=== PATIENT | female | born 1945 | race Caucasian/White ===

== ENCOUNTER → 2016-06-01 | Outpatient (CLI) | payer OTHER ==
[~2016-06-01] MED LIST: ATIVAN; DIAZPOW; ZOLPIDEM
[2016-06-01 09:20] LABS: Basophils # (auto) 0.1 uL; Eosinophils # (auto) 0.2 uL; Eosinophils % (auto) 3.3 % (0.0-7.0); Hematocrit 43.4 % (36.0-46.0); Hemoglobin 13.6 g/dL (12.2-16.2); Lymphocytes # (auto) 1.8 uL; Lymphocytes % (auto) 30.1 % (10.0-50.0); Mean Corpuscular Hemoglobin 28.6 pg (28.0-32.0); Mean Corpuscular Hgb Conc. 31.3 g/dL (32.0-36.0); Mean Corpuscular Volume 91.5 fL (80.0-100.0); Mean Platelet Volume 7.8 fL (7.4-10.4); Monocytes # (auto) 0.5 uL; Monocytes % (auto) 8.2 % (0.0-12.0); Neutrophils # (auto) 3.4 uL; Neutrophils % (auto) 57.4 % (37.0-80.0); Platelet Count (auto) 273 10^3/uL (140-450); Red Cell Distribution Width 14.9 % (11.6-16.0)
[2016-06-01 09:27] LABS: Urine Bilirubin Negative (Negative); Urine Blood Negative /uL (Negative); Urine Color Yellow (Yellow); Urine Glucose Normal (Normal); Urine Ketone Negative (Negative); Urine Nitrite Negative (Negative); Urine RBC <1 /hpf (0 - 4); Urine Squamous Epithelial Cell FEW /hpf (<5); Urine Urobilinogen Normal (Negative)
[2016-06-01 10:36] LABS: Albumin 3.7 g/dL (3.4-5.0); BUN/Creatinine Ratio 19.2; Bilirubin, Total 0.5 mg/dL (0.2-1.0); Calcium 8.9 mg/dL (8.5-10.1); Potassium 4.2 mmol/L (3.5-5.1); Total Protein 7.6 g/dL (6.4-8.2)
== END | disposition home or self-care (01) ==
LOC: LAB 08:31
PROVIDERS: ATTEND Internal Medicine
DX: I10 Essential (primary) hypertension (principal); Z00.00 Encounter for general adult medical examination without abnormal findings; E55.9 Vitamin D deficiency, unspecified
CPT/HCPCS: 36415; 80053; 80061; 81001; 82306; 83036; 84443; 85025

== ENCOUNTER → 2016-09-24 | Outpatient (CLI) | payer OTHER, MEDICARE ==
[2016-09-24 08:58] LABS: Albumin 3.7 g/dL (3.4-5.0); Bilirubin, Direct 0.1 mg/dL (0-0.2); Bilirubin, Total 0.5 mg/dL (0.2-1.0); Total Protein 7.4 g/dL (6.4-8.2)
== END | disposition home or self-care (01) ==
LOC: LAB 08:09
PROVIDERS: ATTEND Internal Medicine
DX: I10 Essential (primary) hypertension (principal); E78.5 Hyperlipidemia, unspecified; K76.89 Other specified diseases of liver
CPT/HCPCS: 36415; 80076; 86704; 86706; 86708; 86803; 87340

== ENCOUNTER 2017-08-14 02:52 | Emergency (ER) | payer MEDICARE, OTHER ==
[~2017-08-14] VITALS: Ht 152.4 cm; Wt 52.6 kg
[2017-08-14 03:44] LABS: Basophils # (auto) 0.1 uL; Basophils % (auto) 0.9 % (0.0-2.0); Eosinophils # (auto) 0.2 uL; Eosinophils % (auto) 3.8 % (0.0-7.0); Hematocrit 42.3 % (36.0-46.0); Lymphocytes # (auto) 2.2 uL; Lymphocytes % (auto) 35.7 % (10.0-50.0); Mean Corpuscular Hemoglobin 30.8 pg (28.0-32.0); Mean Corpuscular Hgb Conc. 33.2 g/dL (32.0-36.0); Mean Corpuscular Volume 92.8 fL (80.0-100.0); Monocytes # (auto) 0.5 uL; Monocytes % (auto) 8.1 % (0.0-12.0); Neutrophils # (auto) 3.2 uL; Neutrophils % (auto) 51.5 % (37.0-80.0); Platelet Count (auto) 225 10^3/uL (140-450); Red Blood Cells 4.56 10^6/uL (4.0-5.20); Red Cell Distribution Width 13.7 % (11.8-14.3); White Blood Cell 6.2 10^3/uL (4.4-10.8)
[2017-08-14 04:08] LABS: Albumin 3.7 g/dL (3.4-5.0); BUN/Creatinine Ratio 25.6; Bilirubin, Total 0.4 mg/dL (0.2-1.0); Calcium 8.6 mg/dL (8.5-10.1); Magnesium 2.2 mg/dL (1.6-2.6); Potassium 3.4 mmol/L (3.5-5.1); Total Protein 7.8 g/dL (6.4-8.2)
[2017-08-14] MEDS ORDERED: POTASSIUM CHL 10% (20 MEQ/15ML) 15ml ORAL SOLN PO ONE (09:00)
[2017-08-14] MEDS ORDERED: ASPirin 325 MG TAB ONE (09:42)
[2017-08-14] MEDS ORDERED: ASPirin 325 MG TAB PO ONE (09:45)
[2017-08-14 11:39] VITALS: BP 114/77
[2017-08-14] MEDS ORDERED: ENOXAPARIN SOD 60 MG/0.6 ML SYRINGE SC ONE (11:45)
== END 2017-08-14 12:13 | disposition home or self-care (01) ==
LOC: ER 02:54
DX: R07.9 Chest pain, unspecified (principal); I10 Essential (primary) hypertension; I25.10 Atherosclerotic heart disease of native coronary artery without angina pectoris; E87.6 Hypokalemia; I25.2 Old myocardial infarction; R06.02 Shortness of breath; E78.00 Pure hypercholesterolemia, unspecified; Z79.899 Other long term (current) drug therapy
CPT/HCPCS: 36415; 71045; 80053; 83735; 83880; 84484; 85025; 93005; 96372; 99285; J1650

== ENCOUNTER 2020-11-13 02:34 | Inpatient (IN) | payer OTHER ==
[~2020-11-13] VITALS: Ht 152.4 cm; Wt 54.3 kg
[2020-11-13] MEDS ORDERED: NITROGLYCERIN 0.2MG/HR TOPICAL PATCH TD ONE (04:00)
[2020-11-13] MEDS ORDERED: ALUM & MAG HYDROX-SIMETH LIQ(MAALOX) 30 ML PO ONE (04:00)
[2020-11-13] MEDS ORDERED: ASPirin 81 mg TAB PO ONE (04:00)
[2020-11-13 04:24] LABS: Albumin 3.8 g/dL (3.4-5.0); Calcium 8.5 mg/dL (8.5-10.1); Potassium 3.9 mmol/L (3.5-5.1)
[2020-11-13 04:25] LABS: Basophils # (auto) 0.1 10 ^3/uL (0-0.2); Basophils % (auto) 1.1 % (0.0-2.0); Eosinophils # (auto) 0.2 10 ^3/uL (0-0.8); Eosinophils % (auto) 3.1 % (0.0-7.0); Hemoglobin 14.6 g/dL (12.2-16.2); Lymphocytes # (auto) 1.3 10 ^3/uL (0.4-5.4); Lymphocytes % (auto) 22.4 % (10.0-50.0); Mean Corpuscular Hemoglobin 31.1 pg (28.0-32.0); Mean Corpuscular Hgb Conc. 34.7 g/dL (32.0-36.0); Mean Corpuscular Volume 89.6 fL (80.0-100.0); Monocytes # (auto) 0.5 10 ^3/uL (0-1.3); Neutrophils # (auto) 3.9 10 ^3/uL (1.6-8.6); Neutrophils % (auto) 65.4 % (37.0-80.0); Red Blood Cells 4.68 10^6/uL (4.0-5.20); White Blood Cell 5.9 10^3/uL (4.4-10.8)
[2020-11-13 04:26] LABS: BUN/Creatinine Ratio 20.8
[2020-11-13 04:31] LABS: Bilirubin, Total 0.4 mg/dL (0.2-1.0); Total Protein 7.4 g/dL (6.4-8.2)
[2020-11-13 05:17] LABS: Urine Bacteria NONE SEEN /hpf (None Seen); Urine Blood Negative /uL (Negative); Urine Specific Gravity 1.006 (1.001-1.035); Urine WBC 1 /hpf (0 - 5)
[2020-11-13] MEDS ORDERED: ENOXAPARIN SOD 60 MG/0.6 ML SYRINGE SC ONE (06:15)
[2020-11-13] MEDS ORDERED: NITROGLYCERIN 0.4 MG SL TAB SL PRN (06:45)
[2020-11-13] MEDS ORDERED: MORPHINE SULFATE INJECTION 2 MG/ML SYRG IV PRN ×2 (06:45)
[2020-11-13] MEDS ORDERED: ONDANSETRON HCL 4 MG/2 ML VIAL IV PRN (06:45)
[2020-11-13 07:08] LABS: INR 0.97 (0.9-1.15); Partial Thromboplastin Time 29.1 sec (23.0-31.2)
[2020-11-13] MEDS ORDERED: SODIUM CHLORIDE 0.9% 1,000 ML IV ONE (07:30)
[2020-11-13] MEDS: ATORVASTATIN 20 MG TAB PO SCH (11:24)
[2020-11-13] MEDS: METOPROLOL TARTRATE 25 MG TAB PO SCH ×2 (11:26→22:04)
[2020-11-13] MEDS ORDERED: IOHEXOL 350 MG/ML 100ML IJ ONE (14:34)
[2020-11-13] MEDS ORDERED: LISI20TA28 PO (17:00)
[2020-11-13] MEDS ORDERED: ASPI-543 PO (17:00)
[2020-11-13 20:00] VITALS: BP 147/88
[2020-11-13 22:01] VITALS: BP 147/88
[2020-11-13] MEDS: ENOXAPARIN SOD 60 MG/0.6 ML SYRINGE SC SCH (22:03)
[2020-11-14 05:00] VITALS: BP 120/63
[2020-11-14 06:40] LABS: Basophils # (auto) 0.2 10 ^3/uL (0-0.2); Basophils % (auto) 2.6 % (0.0-2.0); Eosinophils # (auto) 0.2 10 ^3/uL (0-0.8); Eosinophils % (auto) 2.9 % (0.0-7.0); Hematocrit 41.3 % (36.0-46.0); Hemoglobin 14.7 g/dL (12.2-16.2); Lymphocytes # (auto) 1.9 10 ^3/uL (0.4-5.4); Lymphocytes % (auto) 28.6 % (10.0-50.0); Mean Corpuscular Hemoglobin 31.7 pg (28.0-32.0); Mean Corpuscular Hgb Conc. 35.6 g/dL (32.0-36.0); Mean Corpuscular Volume 89.2 fL (80.0-100.0); Monocytes # (auto) 0.5 10 ^3/uL (0-1.3); Monocytes % (auto) 7.4 % (0.0-12.0); Neutrophils # (auto) 3.8 10 ^3/uL (1.6-8.6); Neutrophils % (auto) 58.5 % (37.0-80.0); Nucleated Red Blood Cells % 0.1 %; Red Blood Cells 4.63 10^6/uL (4.0-5.20); White Blood Cell 6.6 10^3/uL (4.4-10.8)
[2020-11-14 07:35] LABS: Calcium 8.5 mg/dL (8.5-10.1); Potassium 3.8 mmol/L (3.5-5.1)
[2020-11-14 07:40] LABS: BUN/Creatinine Ratio 16.4
[2020-11-14 09:05] VITALS: BP 131/92
[2020-11-14] MEDS: ENOXAPARIN SOD 60 MG/0.6 ML SYRINGE SC SCH (09:31)
[2020-11-14] MEDS: ATORVASTATIN 20 MG TAB PO SCH (09:31)
[2020-11-14] MEDS: METOPROLOL TARTRATE 25 MG TAB PO SCH (09:31)
[2020-11-14] MEDS ORDERED: ASPirin 81 mg TAB PO SCH (10:00)
[2020-11-14] MEDS ORDERED: PANTOPRAZOLE 40 MG TAB PO ONE (11:00)
[2020-11-14] MEDS ORDERED: ATOR40TA52 PO (11:04)
[2020-11-14] MEDS ORDERED: ASPI1TAB20 PO (11:04)
[2020-11-14] MEDS ORDERED: SUCRALFATE 1 GM/10 ML ORAL SUSP PO SCH (11:30)
[2020-11-14 12:43] VITALS: BP 132/74
[2020-11-14] MEDS ORDERED: LOSA25TA38 PO (13:31)
[2020-11-14] MEDS ORDERED: METO25TA5 PO (13:31)
[2020-11-14 14:39] VITALS: BP 130/70
== END 2020-11-14 16:30 | disposition home or self-care (01) | DRG 282 ==
LOC: ER 02:34 → EDBD 02:34 → TELE 06:33 → TELE-CENTR 16:36
PROVIDERS: ADMIT Hospitalist; ATTEND Internal Medicine
DX: I21.4 Non-ST elevation (NSTEMI) myocardial infarction (principal); I10 Essential (primary) hypertension; E78.5 Hyperlipidemia, unspecified; I25.110 Atherosclerotic heart disease of native coronary artery with unstable angina pectoris; K21.9 Gastro-esophageal reflux disease without esophagitis; F41.9 Anxiety disorder, unspecified; Z20.822 Contact with and (suspected) exposure to COVID-19; Z95.5 Presence of coronary angioplasty implant and graft
CPT/HCPCS: 36415; 71045; 71275; 80048; 80053; 80061; 81001; 83735; 83880; 84484; 85025; 85379; 85610; 85730; 87426; 93005; 93306; 96360; 96372; G0378; J2405

== ENCOUNTER → 2021-06-10 | Outpatient (CLI) | payer OTHER ==
[~2021-06-10] MED LIST changes: +ASPI1TAB20 PO; +ATOR40TA52 PO; +LOSA25TA38 PO; +METO25TA5 PO
== END | disposition home or self-care (01) ==
LOC: LAB 10:15
PROVIDERS: ATTEND Physician Assistant
DX: L82.1 Other seborrheic keratosis (principal); D22.9 Melanocytic nevi, unspecified

== ENCOUNTER → 2021-06-16 | Outpatient (CLI) | payer OTHER ==
[~2021-06-16] VITALS: Ht 152.4 cm; Wt 52.6 kg
[~2021-06-16] MED LIST changes: +ADENOSINE 44 MG in GIVE UN-DILUTED 0 ML IV STA
[2021-06-16 09:52] VITALS: BP 152/78
== END | disposition home or self-care (01) ==
LOC: XY 08:34
PROVIDERS: ATTEND Internal Medicine
DX: I25.2 Old myocardial infarction (principal); I25.118 Atherosclerotic heart disease of native coronary artery with other forms of angina pectoris; R94.31 Abnormal electrocardiogram [ECG] [EKG]; Z92.89 Personal history of other medical treatment; Z95.5 Presence of coronary angioplasty implant and graft
CPT/HCPCS: 78452; 93017; A9500; J0153

== ENCOUNTER → 2021-07-28 | Day surgery (SDC) | payer OTHER ==
[2021-07-24 09:48] LABS: Basophils # (auto) 0.1 10 ^3/uL (0-0.2); Basophils % (auto) 1.3 % (0.0-2.0); Eosinophils # (auto) 0.1 10 ^3/uL (0-0.8); Eosinophils % (auto) 2.5 % (0.0-7.0); Hematocrit 42.7 % (36.0-46.0); Hemoglobin 14.6 g/dL (12.2-16.2); Lymphocytes # (auto) 1.4 10 ^3/uL (0.4-5.4); Lymphocytes % (auto) 25.6 % (10.0-50.0); Mean Corpuscular Hemoglobin 30.9 pg (28.0-32.0); Mean Corpuscular Hgb Conc. 34.1 g/dL (32.0-36.0); Mean Corpuscular Volume 90.5 fL (80.0-100.0); Monocytes # (auto) 0.3 10 ^3/uL (0-1.3); Neutrophils # (auto) 3.5 10 ^3/uL (1.6-8.6); Neutrophils % (auto) 64.6 % (37.0-80.0); Nucleated Red Blood Cells % 0.1 %; Red Blood Cells 4.72 10^6/uL (4.0-5.20); Red Cell Distribution Width 13.4 % (11.8-14.3); White Blood Cell 5.4 10^3/uL (4.4-10.8)
[2021-07-24 10:11] LABS: INR 1.07 (0.9-1.15); Partial Thromboplastin Time 30.2 sec (23.6-33.0)
[2021-07-24 11:20] LABS: Albumin 3.5 g/dL (3.4-5.0); Calcium 8.8 mg/dL (8.5-10.1); Potassium 4.2 mmol/L (3.5-5.1)
[2021-07-24 11:24] LABS: BUN/Creatinine Ratio 21.1; Bilirubin, Total 0.5 mg/dL (0.2-1.0); Total Protein 7.4 g/dL (6.4-8.2)
[~2021-07-28] VITALS: Ht 152.4 cm; Wt 53.1 kg
[~2021-07-28] MED LIST changes: -ADENOSINE 44 MG in GIVE UN-DILUTED 0 ML IV STA; +B-COTAB59 OR; +CAR125T PO; +CETI10CA5 PO; +CHOL20007 OR; +EZET10TA22 PO; +LIDOCAINE VISCOUS 2% 15ML UD ONE; +MIDAZOLAM HCL 5 MG/ML-1ML VIAL ONE; +SODIUM CHLORIDE LOCK 10 ML ONE; +diphenhdrAMINE HCL 50 MG/1 ML VL ONE
[2021-07-28] MEDS: fentaNYL CITRATE 100 MCG/2 ML VL ONE ×2 (11:14→11:17)
[2021-07-28 12:20] VITALS: BP 138/79
== END | disposition home or self-care (01) ==
LOC: GI 09:45
PROVIDERS: ATTEND Internal Medicine Gastroenterology
DX: K21.9 Gastro-esophageal reflux disease without esophagitis (principal); R10.13 Epigastric pain; R07.89 Other chest pain; K44.9 Diaphragmatic hernia without obstruction or gangrene; K29.50 Unspecified chronic gastritis without bleeding; K29.90 Gastroduodenitis, unspecified, without bleeding; K31.7 Polyp of stomach and duodenum; K22.89 Other specified disease of esophagus; I10 Essential (primary) hypertension; E78.5 Hyperlipidemia, unspecified; Z90.710 Acquired absence of both cervix and uterus; Z95.5 Presence of coronary angioplasty implant and graft; Z90.721 Acquired absence of ovaries, unilateral; Z20.822 Contact with and (suspected) exposure to COVID-19
CPT/HCPCS: 36415; 43239; 80053; 85025; 85610; 85730; J1200; J2250; J3010; J7030; U0003; 99152

== ENCOUNTER → 2021-09-11 | Outpatient (CLI) | payer OTHER ==
[~2021-09-11] MED LIST changes: -LIDOCAINE VISCOUS 2% 15ML UD ONE; -MIDAZOLAM HCL 5 MG/ML-1ML VIAL ONE; -SODIUM CHLORIDE LOCK 10 ML ONE; -diphenhdrAMINE HCL 50 MG/1 ML VL ONE
[2021-09-11 13:23] LABS: Alanine Aminotransferase 30 U/L (13-56); Albumin 3.3 g/dL (3.4-5.0); Bilirubin, Direct < 0.1 mg/dL (0-0.2)
[2021-09-11 13:26] LABS: Alkaline Phosphatase 115 U/L (45-117); Aspartate Aminotransferase 53 U/L (15-37); Bilirubin, Total 0.3 mg/dL (0.2-1.0); Total Protein 7.6 g/dL (6.4-8.2)
== END | disposition home or self-care (01) ==
LOC: LAB 12:26
PROVIDERS: ATTEND Internal Medicine
DX: E78.5 Hyperlipidemia, unspecified (principal)
CPT/HCPCS: 36415; 80076

== ENCOUNTER → 2021-11-11 | Outpatient (CLI) | payer OTHER ==
[2021-11-11 11:22] LABS: Albumin 3.4 g/dL (3.4-5.0); Bilirubin, Direct 0.2 mg/dL (0-0.2)
[2021-11-11 11:25] LABS: Bilirubin, Total 0.6 mg/dL (0.2-1.0); Total Protein 7.8 g/dL (6.4-8.2)
== END | disposition home or self-care (01) ==
LOC: LAB 10:20
PROVIDERS: ATTEND Internal Medicine
DX: E78.5 Hyperlipidemia, unspecified (principal)
CPT/HCPCS: 36415; 80061; 80076

== ENCOUNTER → 2022-03-04 | Outpatient (CLI) | payer OTHER ==
[2022-03-04 10:29] LABS: Urine Bacteria NONE SEEN /hpf (None Seen); Urine Blood Negative /uL (Negative); Urine Hyaline Cast FEW /lpf (0 - 2); Urine Specific Gravity 1.008 (1.001-1.035); Urine WBC 2 /hpf (0 - 5)
[2022-03-04 10:32] LABS: Albumin 3.5 g/dL (3.4-5.0); Calcium 8.9 mg/dL (8.5-10.1); Potassium 3.8 mmol/L (3.5-5.1)
[2022-03-04 10:36] LABS: BUN/Creatinine Ratio 20.3; Bilirubin, Total 0.6 mg/dL (0.2-1.0); Total Protein 7.4 g/dL (6.4-8.2)
== END | disposition home or self-care (01) ==
LOC: LAB 09:54
PROVIDERS: ATTEND Internal Medicine
DX: E78.5 Hyperlipidemia, unspecified (principal); R73.03 Prediabetes
CPT/HCPCS: 36415; 80053; 80061; 81001; 82043; 83036

== ENCOUNTER 2023-02-16 18:00 | Emergency (ER) | payer MEDICARE, OTHER ==
[~2023-02-16] VITALS: Ht 152.4 cm; Wt 49.4 kg
[~2023-02-16 18:00] MED LIST changes: +CETI-176 PO; -CETI10CA5 PO; +LOSA25TA15 PO; -LOSA25TA38 PO
[2023-02-16] MEDS ORDERED: LISINOPRIL 20 MG TAB PO ONE (19:00)
[2023-02-16 23:03] LABS: Alanine Aminotransferase 23 U/L (7-40); Albumin 4.4 g/dL (3.2-4.8); Alkaline Phosphatase 127 U/L (46-116); Anion Gap 7 (5-15); Aspartate Aminotransferase 44 U/L (13-40); BUN/Creatinine Ratio 15.3 (10.0-20.0); Blood Urea Nitrogen 13 mg/dL (9-23); CRP High Sensitivity 0.87 mg/dL (<1.0); Calcium 9.3 mg/dL (8.5-10.1); Carbon Dioxide 23 mmol/L (20-30); Chloride 104 mmol/L (98-107); Glucose 114 mg/dL (74-106); Sodium 134 mmol/L (136-145)
[2023-02-16 23:04] LABS: Bilirubin, Total 0.5 mg/dL (0.2-1.0); Total Protein 7.5 g/dL (5.7-8.2)
[2023-02-16 23:17] LABS: Erythrocyte Sedimentation Rate 33 mm/hr (0-20)
[2023-02-16 23:19] LABS: Basophils # (auto) 0.1 10 ^3/uL (0-0.2); Eosinophils # (auto) 0.1 10 ^3/uL (0-0.8); Eosinophils % (auto) 1.2 % (0.0-7.0); Hematocrit 42.4 % (36.0-46.0); Hemoglobin 14.2 g/dL (12.2-16.2); Lymphocytes % (auto) 17.3 % (10.0-50.0); Mean Corpuscular Hemoglobin 30.4 pg (28.0-32.0); Mean Corpuscular Hgb Conc. 33.5 g/dL (32.0-36.0); Mean Corpuscular Volume 90.9 fL (80.0-100.0); Monocytes # (auto) 0.9 10 ^3/uL (0-1.3); Monocytes % (auto) 7.3 % (0.0-12.0); Neutrophils # (auto) 8.6 10 ^3/uL (1.6-8.6); Neutrophils % (auto) 73.2 % (37.0-80.0); Nucleated Red Blood Cells % 0.1 %; Red Blood Cells 4.67 10^6/uL (4.0-5.20); Red Cell Distribution Width 13.5 % (11.8-14.3); White Blood Cell 11.7 10^3/uL (4.4-10.8)
[2023-02-17] MEDS ORDERED: VANCOMYCIN 1GM/250ML 250 ML IV ONE (02:45)
[2023-02-17] MEDS ORDERED: ONDANSETRON HCL 4 MG/2 ML VIAL IV ONE (02:45)
[2023-02-17] MEDS ORDERED: PIPERACILLIN-TAZOB 3.375GM 100 ML IV ONE (02:45)
[2023-02-17] MEDS ORDERED: MORPHINE SULFATE 4 MG/ML SYR/VIAL IV ONE (02:45)
[2023-02-17] MEDS ORDERED: TETANUS-DIPTH-ACEL PERTUSSIS 0.5ML SYR Tdap IM ONE (06:30)
[2023-02-17] MEDS ORDERED: HYDROcodone-ACET 5/325MG TAB PO PRN (07:30)
[2023-02-17] MEDS ORDERED: DOCUSATE SOD 100 MG CAP PO PRN (07:30)
[2023-02-17] MEDS ORDERED: hydrALAZINE HCL 20 MG/ML VL IV PRN (07:30)
[2023-02-17] MEDS ORDERED: ONDANSETRON HCL 4 MG/2 ML VIAL IV PRN (07:30)
[2023-02-17] MEDS ORDERED: VANCOMYCIN PER PHARMACY 0 MG IV SCH (07:30)
[2023-02-17 08:03] LABS: Basophils # (auto) 0.1 10 ^3/uL (0-0.2); Basophils % (auto) 0.8 % (0.0-2.0); Eosinophils # (auto) 0 10 ^3/uL (0-0.8); Eosinophils % (auto) 0.4 % (0.0-7.0); Hematocrit 40.9 % (36.0-46.0); Hemoglobin 13.6 g/dL (12.2-16.2); Lymphocytes # (auto) 1.3 10 ^3/uL (0.4-5.4); Lymphocytes % (auto) 10.9 % (10.0-50.0); Mean Corpuscular Hemoglobin 30.2 pg (28.0-32.0); Mean Corpuscular Hgb Conc. 33.3 g/dL (32.0-36.0); Mean Corpuscular Volume 90.6 fL (80.0-100.0); Monocytes # (auto) 0.6 10 ^3/uL (0-1.3); Monocytes % (auto) 5.2 % (0.0-12.0); Neutrophils # (auto) 9.6 10 ^3/uL (1.6-8.6); Neutrophils % (auto) 82.7 % (37.0-80.0); Red Blood Cells 4.51 10^6/uL (4.0-5.20); Red Cell Distribution Width 13.5 % (11.8-14.3); White Blood Cell 11.6 10^3/uL (4.4-10.8)
[2023-02-17] MEDS ORDERED: DOXY-286 PO (08:23)
[2023-02-17] MEDS ORDERED: TRAM50TA2 PO (08:23)
[2023-02-17] MEDS ORDERED: CLIN300C70 PO (08:23)
[2023-02-17] MEDS ORDERED: IBUP1TAB5 PO (08:25)
[2023-02-17 09:00] VITALS: PULSE 69; RESP 18; O2SAT 98
[2023-02-17 09:11] VITALS: BP 118/69; PULSE 69; RESP 17; TEMP 97.9; O2SAT 98
[2023-02-17] MEDS ORDERED: PIPERACILLIN-TAZOB 3.375GM 100 ML IV SCH (12:00)
== END 2023-02-17 08:38 | disposition admitted as inpatient to this hospital (09) ==
LOC: ER 18:00
DX: L03.114 Cellulitis of left upper limb (principal); D72.829 Elevated white blood cell count, unspecified; R70.0 Elevated erythrocyte sedimentation rate; E78.5 Hyperlipidemia, unspecified; I10 Essential (primary) hypertension; I25.2 Old myocardial infarction; F41.9 Anxiety disorder, unspecified; Z78.9 Other specified health status
CPT/HCPCS: 36415; 73200; 80053; 83605; 83735; 85025; 85652; 86141; 87040; 90471; 90715; 96365; 96366; 96367; 96375; 99285; J2270; J2405; J2543; J3370

== ENCOUNTER 2024-05-05 04:14 | Inpatient (IN) | payer MEDICARE, OTHER ==
[~2024-05-05] VITALS: Ht 30.5 cm; Wt 55.8 kg
[2024-05-05] VITALS (14 sets, daily range): BP systolic 95–118; BP diastolic 49–77; PULSE 60–100; RESP 12–18; TEMP 97.6–99.3; O2SAT 92–97
[~2024-05-05 04:14] MED LIST changes: +CLIN1CAP70 PO; +DOXY-286 PO; +IBUP1TAB5 PO; +LOSA-533 PO; -LOSA25TA15 PO
[2024-05-05] MEDS: HEPARIN SODIUM (PORCINE) 5000 UNITS/ML 1ML VIAL IV ONE (04:28)
[2024-05-05] MEDS: ASPirin 81 mg TAB PO ONE (04:28)
--- NOTE | 2024-05-05 04:32 | ED.PDOC ---
HPI Comments 78-year-old female into the emergency room via EMS for chest pains. Patient does have a history of hypertension, dyslipidemia and [place] (10 years ago). Since 3:00 a.m., patient has been experiencing substernal chest pains, pressure, 10/10 intensity, radiating to the left arm, associated with shortness a breath, nausea and vomiting. Upon arrival the paramedics, patient noted to be bradycardic at 40's, hypotensive at 74/46 mmHg. EKG showed significant ST changes. Patient was given aspirin while in route to the emergency room. Patient states similar to when she had the [place] years ago. Chief Complaint: Chest Pain Comments Time Seen by MD: 04:31 Primary Care Provider: / Reviewed Notes: Studio Pro[employer] Notes Allergies: Coded Allergies: NO KNOWN ALLERGIES (Unverified , 06/16/21) Home Meds Active Scripts Ibuprofen Micronized (Ibuprofen) 600 Mg Tab, 600 MG PO TIDP PRN for 30 Days, #90 TAB Prov:LEIGHANN CRUZ MD 02/17/23 Clindamycin Hcl (Clindamycin Hcl) 300 Mg Cap, 600 MG PO TID for 10 Days, #60 CAP Prov:LEIGHANN CRUZ MD 02/17/23 Doxycycline Hyclate (DOXYCYCLINE HYCLATE) 100 Mg Tab, 100 MG PO BID for 10 Days, #20 TAB Prov:LEIGHANN CRUZ MD 02/17/23 Losartan Potassium (Losartan Potassium) 25 Mg Tab, 1 TAB PO DAILY, #30 TAB 0 Refills Prov:ISABELLA CHRISTINA MD 11/14/20 Metoprolol Tartrate (Metoprolol Tartrate) 25 Mg Tab, 0.5 TAB PO BID for 30 Days, #30 TAB 1 Refill Metoprolol 12.5 mg po bid Prov:ISABELLA CHRISTINA MD 11/14/20 Atorvastatin Calcium (ATORVASTATIN CALCIUM) 40 Mg Tab, 1 TAB PO DAILY, #30 TAB 0 Refills Prov:ISABELLA CHRISTINA MD 11/14/20 Aspirin (Aspir-81) 81 Mg Tab, 1 TAB PO DAILY, #30 TAB 0 Refills Prov:ISABELLA CHRISTINA MD 11/14/20 Reported Medications Cetirizine Hcl (Zyrtec Allergy) 10 Mg Tab, 10 MG PO, TAB 07/24/21 B-Complex W/ Folic Acid (B Complex) Tab, 1 OR, TAB 07/24/21 Cholecalciferol (VITAMIN D3) 2,000 Unit Tab, 2000 UNIT OR, TAB 07/24/21 Carvedilol (Coreg) 12.5 Mg Tab, 12.5 MG PO, TAB 07/24/21 Ezetimibe (Zetia) 10 Mg Tab, 10 MG PO, TAB 07/24/21 [Diazepam] (Diazepam) No Conflict Check 05/14/12 [Ativan] No Conflict Check 05/14/12 [Zolpidem] No Conflict Check 05/14/12 Information Source: Patient, Emergency Med Personnel Mode of Arrival: EMS Severity: Severe Timing: Minutes Duration: Since onset Prehospital treatment: 12 Lead EKG, ASA, Oxygen Location: Substernal Radiation: Arm (L) Quality: Pressure Onset: With Light Exertion Cardiac Risk Factors: Hyperlipidemia, HTN PE Risk Factors: None History of: Similar pain in past, [place] Associated Signs and Symptoms: SOB, N/V Review of Systems REVIEW OF SYSTEMS: No fever, no chills, or fatigue HEENT: No sore throat, no earache, no congestion, no neck pain. Cardiac: (+) chest pain. No palpitations. Lungs: (+) shortness of breath, no cough. GI: No nausea, no vomiting, no diarrhea, no constipation, no abdominal pain : No dysuria, frequency, or urgency. No hematuria. Musculoskeletal: No joint pain , no joint swelling, no extremity edema. Skin: No rash, no itching. Neuro: No headache, no dizziness, no weakness Vital Signs Vital Signs Date Time Temp Pulse Resp B/P (MAP) Pulse Ox O2 Delivery O2 Flow Rate FiO2 05/05/24 04:55 63 10 127/75 (92) 95 05/05/24 04:15 98.0 Physical Exam General: Awake, alert and oriented. No acute distress. Skin: Skin in warm, dry and intact. Appropriate color for ethnicity. Nailbeds pink with no cyanosis. HEENT: The head is normocephalic and atraumatic. Conjunctivae are clear without exudates or hemorrhage. Sclera is non-icteric. EOM are intact. No signs of nystagmus. Eyelids are normal in appearance without swelling or lesions. Oral mucosa is pink and moist Neck: The neck is supple with normal range of motion. No JVD. Cardiac: Heart rate and rhythm are normal. No murmurs, gallops, or rubs are auscultated. Respiratory: No signs of respiratory distress. Lung sounds are clear in all lobes bilaterally without rales, ronchi, or wheezes. Abdominal: Abdomen is soft, non-tender without distention. Bowel sounds are present and normoactive in all four quadrants. Extremities: Upper and lower extremities are atraumatic in appearance without deformity or edema. Neurological: The patient is awake, alert and oriented to person, place, and time with normal speech. Speech is clear. There is no facial asymmetry. Psychiatric: Appropriate mood and affect. Good judgement and insight. No visual or auditory hallucinations. 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 Was a procedure done?: No CP Differential Dx Differential Diagnosis: Angina, Anxiety / Panic Attack, Hyperventilation Differential Diagnosis: Angina, Chest Wall Pain, Costochondritis, Esophageal reflux/spasm, Gastritis, Myocardial Infarction, Pneumonia X-Ray, Labs, Meds, VS Vital Signs Date Time Temp Pulse Resp B/P (MAP) Pulse Ox O2 Delivery O2 Flow Rate FiO2 05/05/24 04:55 63 10 127/75 (92) 95 05/05/24 04:35 62 13 127/75 05/05/24 04:32 45 05/05/24 04:21 92 18 120/68 (85) 96 05/05/24 04:15 98.0 45 26 90/45 (60) 99 05/05/24 04:15 45 Lab Test 05/05/24 04:20 Range/Units White Blood Count Pending Red Blood Count Pending Hemoglobin Pending Hematocrit Pending Mean Corpuscular Volume Pending Mean Corpuscular Hemoglobin Pending Mean Corpuscular Hemoglobin Concent Pending Red Cell Distribution Width Pending Platelet Count Pending Mean Platelet Volume Pending Neutrophils (%) (Auto) Pending Lymphocytes (%) (Auto) Pending Monocytes (%) (Auto) Pending Basophils (%) (Auto) Pending Neutrophils # (Auto) Pending Lymphocytes # (Auto) Pending Monocytes # (Auto) Pending Sodium Level 139 136-145 mmol/L Potassium Level 3.0 L 3.5-5.1 mmol/L Chloride Level 105 98-107 mmol/L Carbon Dioxide Level 22 20-31 mmol/L Anion Gap 12 5-15 Blood Urea Nitrogen 19 9-23 mg/dL Creatinine 1.07 H 0.550-1.02 mg/dL Glomerular Filtration Rate Calc 54 >90 mL/min BUN/Creatinine Ratio 17.8 10.0-20.0 Serum Glucose 233 H 74-106 mg/dL Calcium Level 9.3 8.7-10.4 mg/dL Magnesium Level 2.2 1.6-2.6 mg/dL Total Bilirubin 0.6 0.2-1.0 mg/dL Aspartate Amino Transferase (AST) 46 H 13-40 U/L Alanine Aminotransferase (ALT) 20 7-40 U/L Alkaline Phosphatase 60 46-116 U/L Troponin I High Sensitivity 27 </=34 ng/L Total Protein 7.1 5.7-8.2 g/dL Albumin 4.1 3.2-4.8 g/dL Current Medications Medications (Trade) Dose Ordered Sig/Chaya Route Start Time Stop Time Status Last Admin Sodium Chloride (Saline Lock Ns) 10 ml Q8HR IV 05/05/24 06:00 05/05/24 04:37 Heparin Sodium (Porcine) ONCE ONCE IV 05/05/24 04:30 05/05/24 04:31 DC 05/05/24 04:28 Aspirin 162 mg ONCE ONCE PO 05/05/24 04:30 05/05/24 04:31 DC 05/05/24 04:28 Sodium Chloride 1,000 ml @ 1,000 mls/hr Q1H ONCE IV 05/05/24 04:30 05/05/24 05:29 05/05/24 04:36 Morphine Sulfate 2 mg ONCE ONCE IV 05/05/24 04:30 05/05/24 04:31 DC 05/05/24 04:35 Ondansetron HCl (Zofran) 4 mg ONCE ONCE IV 05/05/24 04:30 05/05/24 04:31 DC 1/11/25 04:43 Time of 1ST Reevaluation: 04:23 Reevaluation 1ST: Unchanged Patient Education/Counseling: Diagnosis, Treatment Family Education/Counseling: No Family Present Departure 1 Departure Time of Disposition: 05:16 Impression: Primary Impression: Acute ST elevation myocardial infarction (STEMI) Disposition: 09 ADMITTED INPATIENT Condition: Stable Comments 78-year-old female presents to the emergency department with chest pain and acute STEMI. Heparin initiated in the ED. Patient taken directly to the [facility] for [facility]. Extensive evaluation was performed in attempt to identify or rule out: (See differential diagnosis section) The following tests were ordered, and results were reviewed by me: (See diagnostic results section) The following test were independently interpreted by me: EKG I reviewed and agreed with the following test results read by other providers: N/A I reviewed the following notes from the pt's past medical encounters: (None available at this time) Additional information was gathered from interviewing the following independent historians: N/A Discussion of management or test interpretation with external physician/other qualified health acute care physician: N/A Addressed an acute or chronic illness that poses a threat to life or bodily function: Acute coronary syndrome Decision regarding hospitalization or escalation of hospital level of care: Risk and benefits of admission for further treatment of patient's condition was considered. Due to patient's current clinical condition, high risk of decline and poor outcome if discharged and need for further inpatient management and monitoring, patient will be admitted to the hospital. Critical Care Note Critical Care Time?: Yes (35 min-critical care time only) Stability Stability form required: No Heart Score Heart Score: Heart Score Response (Comments) Value History Highly Suspicious [address]-Deviation 2 Age >65 2 Risk Factors >3 or Hx ASHD 2 Troponin 1-2 x's Normal limit 1 Total 9 I personally scribed for RALPH DUBOSE MD ([email or web address]) on 05/05/24 at 04:32. Electronically submitted by Mejia Amaral ([email or web address]). RALPH DUBOSE MD May 05, 2024 04:32
[2024-05-05] MEDS: MORPHINE SULFATE INJ 2 MG/ml SYRG IV ONE (04:35)
[2024-05-05] MEDS: SODIUM CHLORIDE 0.9% 1,000 ML IV ONE (04:36)
[2024-05-05] MEDS: SODIUM CHLOR 0.9% PF (SALINE LOCK) 10ML VIAL/SYR IV SCH (04:37)
[2024-05-05] MEDS: ONDANSETRON HCL 4 MG/2 ML VIAL IV ONE (04:43)
[2024-05-05] MEDS: SODIUM CHL 0.9% 50 ML ONE (04:46)
[2024-05-05] MEDS: MIDAZOLAM HCL 2MG/2ML 2ml VIAL (1mg/ml) ONE (04:46)
[2024-05-05] MEDS: fentaNYL CITRATE 100 MCG/2 ML VL ONE (04:46)
[2024-05-05] MEDS: LIDOCAINE 2%HCL (LOCAL ANESTH.) INJ 20ML MDV ONE (04:46)
[2024-05-05] MEDS: ANGIOMAX 250 MG VIAL IV ONE (04:46)
[2024-05-05] MEDS: IODIXANOL 320MG/ML 100ML BTL IV ONE (04:52)
[2024-05-05 04:57] LABS: Alanine Aminotransferase 20 U/L (7-40); Albumin 4.1 g/dL (3.2-4.8); Alkaline Phosphatase 60 U/L (46-116); Anion Gap 12 (5-15); BUN/Creatinine Ratio 17.8 (10.0-20.0); Blood Urea Nitrogen 19 mg/dL (9-23); Calcium 9.3 mg/dL (8.7-10.4); Carbon Dioxide 22 mmol/L (20-31); Chloride 105 mmol/L (98-107); Magnesium 2.2 mg/dL (1.6-2.6); Sodium 139 mmol/L (136-145)
[2024-05-05 04:58] LABS: Bilirubin, Total 0.6 mg/dL (0.2-1.0); Total Protein 7.1 g/dL (5.7-8.2)
[2024-05-05 05:10] LABS: Aspartate Aminotransferase 46 U/L (13-40); Glucose 233 mg/dL (74-106)
[2024-05-05] MEDS ORDERED: POTASSIUM CHL 20MEQ/100ML 100 ML IV ONE (05:15)
--- NOTE | 2024-05-05 05:40 | ECG ---
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
[2024-05-05] MEDS ORDERED: MORPHINE SULFATE INJ 2 MG/ml SYRG IV PRN (06:00)
[2024-05-05] MEDS ORDERED: NITROGLYCERIN 0.4 MG SL TAB SL PRN (06:00)
[2024-05-05 07:01] LABS: Basophils # (auto) 0 10 ^3/uL (0-0.2); Basophils % (auto) 0.7 % (0.0-2.0); Eosinophils # (auto) 0.2 10 ^3/uL (0-0.8); Eosinophils % (auto) 2.8 % (0.0-7.0); Hematocrit 40.9 % (36.0-46.0); Hemoglobin 13.7 g/dL (12.2-16.2); Lymphocytes % (auto) 45.1 % (10.0-50.0); Mean Corpuscular Hemoglobin 30.7 pg (28.0-32.0); Mean Corpuscular Hgb Conc. 33.5 g/dL (32.0-36.0); Mean Corpuscular Volume 91.7 fL (80.0-100.0); Monocytes # (auto) 0.5 10 ^3/uL (0-1.3); Monocytes % (auto) 7.1 % (0.0-12.0); Neutrophils % (auto) 44.3 % (37.0-80.0); Nucleated Red Blood Cells % 0.1 %; Platelet Count (auto) 376 10^3/uL (140-450); Red Blood Cells 4.45 10^6/uL (4.0-5.20); Red Cell Distribution Width 14.7 % (11.8-14.3); White Blood Cell 6.7 10^3/uL (4.4-10.8)
[2024-05-05] MEDS: ASPirin 81 mg TAB PO SCH (10:00)
[2024-05-05] MEDS: CLOPIDOGREL BISULFATE 75 MG TAB PO SCH (10:00)
[2024-05-05] MEDS: METOPROLOL TARTRATE 25 MG TAB PO SCH (10:00)
[2024-05-05] MEDS ORDERED: LATA0.008 EACHEYE (11:12)
[2024-05-05] MEDS ORDERED: METO-289 PO (11:12)
[2024-05-05] MEDS ORDERED: ATOR20TA50 PO (11:12)
[2024-05-05] MEDS ORDERED: GEMF-66 PO (11:12)
[2024-05-05] MEDS ORDERED: LOSA-534 PO (11:12)
[2024-05-05] MEDS: POTASSIUM CHL 20 Meq TABLET PO ONE (19:20)
[2024-05-05] MEDS: ATORVASTATIN 20 MG TAB PO SCH (21:15)
--- NOTE | 2024-05-05 22:22 | DVHHP2 ---
Admitting Diagnosis: STEMI History of Present Illness HPI This is a 78-year-old female with a PMH of HTN and [place] who was brought in by EMS with c/o chest pains since 3:00 a.m. Patient has been experiencing substernal chest pains, pressure, 10/10 intensity, radiating to the left arm, associated with shortness a breath, nausea and vomiting. Upon EMS arrival, patient noted to be bradycardic at 40's, hypotensive at 74/46 mmHg. EKG showed significant ST changes. Patient was given aspirin while in route to the emergency room. Patient states similar to when she had the [place] years ago. EKG consistent with STEMI and code STEMI was called. I seen the patient at bedside within a few minutes. TROP 27 > 85316 > 47094. Patient advised for emergency cardiac cath. Patient will be admitted under my care. Home Meds Active Scripts Ibuprofen Micronized (Ibuprofen) 600 Mg Tab, 600 MG PO TIDP PRN for 30 Days, #90 TAB Prov:LEIGHANN CRUZ MD 02/17/23 Clindamycin Hcl (Clindamycin Hcl) 300 Mg Cap, 600 MG PO TID for 10 Days, #60 CAP Prov:LEIGHANN CRUZ MD 02/17/23 Doxycycline Hyclate (DOXYCYCLINE HYCLATE) 100 Mg Tab, 100 MG PO BID for 10 Days, #20 TAB Prov:LEIGHANN CRUZ MD 02/17/23 Losartan Potassium (Losartan Potassium) 25 Mg Tab, 1 TAB PO DAILY, #30 TAB 0 Refills Prov:ISABELLA CHRISTINA MD 11/14/20 Metoprolol Tartrate (Metoprolol Tartrate) 25 Mg Tab, 0.5 TAB PO BID for 30 Days, #30 TAB 1 Refill Metoprolol 12.5 mg po bid Prov:ISABELLA CHRISTINA MD 11/14/20 Atorvastatin Calcium (ATORVASTATIN CALCIUM) 40 Mg Tab, 1 TAB PO DAILY, #30 TAB 0 Refills Prov:ISABELLA CHRISTINA MD 11/14/20 Aspirin (Aspir-81) 81 Mg Tab, 1 TAB PO DAILY, #30 TAB 0 Refills Prov:ISABELLA CHRISTINA MD 11/14/20 Reported Medications Gemfibrozil (Gemfibrozil) 600 Mg Tab, 1 TAB PO 05/05/24 Latanoprost (LATANOPROST) 0.005 % Hallie, 1 DROP EACHEYE 05/05/24 Losartan Potassium (Losartan Potassium) 50 Mg Tab, 1 TAB PO DAILY 05/05/24 Metoprolol Succinate (Metoprolol Succinate Er) 50 Mg Tab, 1 TAB PO DAILY 05/05/24 Atorvastatin Calcium (ATORVASTATIN CALCIUM) 20 Mg Tab, 1 TAB PO DAILY 05/05/24 Cetirizine Hcl (Zyrtec Allergy) 10 Mg Tab, 10 MG PO, TAB 07/24/21 B-Complex W/ Folic Acid (B Complex) Tab, 1 OR, TAB 07/24/21 Cholecalciferol (VITAMIN D3) 2,000 Unit Tab, 2000 UNIT OR, TAB 07/24/21 Carvedilol (Coreg) 12.5 Mg Tab, 12.5 MG PO, TAB 07/24/21 Ezetimibe (Zetia) 10 Mg Tab, 10 MG PO, TAB 07/24/21 [Diazepam] (Diazepam) No Conflict Check 05/14/12 [Ativan] No Conflict Check 05/14/12 [Zolpidem] No Conflict Check 05/14/12 Past Medical History Patient Family History: Cerebrovascular accident (CVA) G8 FATHER G8 BROTHER Review of Systems All Other Systems REVIEW OF SYSTEMS: No fever, no chills, or fatigue HEENT: No sore throat, no earache, no congestion, no neck pain. Cardiac: (+) chest pain. No palpitations. Lungs: (+) shortness of breath, no cough. GI: No nausea, no vomiting, no diarrhea, no constipation, no abdominal pain : No dysuria, frequency, or urgency. No hematuria. Musculoskeletal: No joint pain , no joint swelling, no extremity edema. Skin: No rash, no itching. Neuro: No headache, no dizziness, no weakness H&P Exam Vital Signs Vital Signs Date Time Temp Pulse Resp B/P (MAP) Pulse Ox O2 Delivery O2 Flow Rate FiO2 05/05/24 20:41 99.3 100 14 114/77 (89) 95 99.3 05/05/24 10:43 Room Air* 0 21 Comments GENERAL: Awake, alert, oriented. LUNGS: Clear. CARDIOVASCULAR: Heart sounds are good. ABDOMEN: Soft. Labs/Xrays Labs Test 05/05/24 14:08 05/05/24 04:20 Range/Units Troponin I High Sensitivity 45329 *H </=34 ng/L White Blood Count 6.7 4.4-10.8 10^3/uL Red Blood Count 4.45 4.0-5.20 10^6/uL Hemoglobin 13.7 12.2-16.2 g/dL Hematocrit 40.9 36.0-46.0 % Mean Corpuscular Volume 91.7 80.0-100.0 fL Mean Corpuscular Hemoglobin 30.7 28.0-32.0 pg Mean Corpuscular Hemoglobin Concent 33.5 32.0-36.0 g/dL Red Cell Distribution Width 14.7 H 11.8-14.3 % Platelet Count 376 140-450 10^3/uL Mean Platelet Volume 7.5 6.9-10.8 fL Neutrophils (%) (Auto) 44.3 37.0-80.0 % Lymphocytes (%) (Auto) 45.1 10.0-50.0 % Monocytes (%) (Auto) 7.1 0.0-12.0 % Eosinophils (%) (Auto) 2.8 0.0-7.0 % Basophils (%) (Auto) 0.7 0.0-2.0 % Neutrophils # (Auto) 3.0 1.6-8.6 10 ^3/uL Lymphocytes # (Auto) 3.0 0.4-5.4 10 ^3/uL Monocytes # (Auto) 0.5 0-1.3 10 ^3/uL Eosinophils # (Auto) 0.2 0-0.8 10 ^3/uL Basophils # (Auto) 0 0-0.2 10 ^3/uL Nucleated Red Blood Cells 0.1 % Sodium Level 139 136-145 mmol/L Potassium Level 3.0 L 3.5-5.1 mmol/L Chloride Level 105 98-107 mmol/L Carbon Dioxide Level 22 20-31 mmol/L Anion Gap 12 5-15 Blood Urea Nitrogen 19 9-23 mg/dL Creatinine 1.07 H 0.550-1.02 mg/dL Glomerular Filtration Rate Calc 54 >90 mL/min BUN/Creatinine Ratio 17.8 10.0-20.0 Serum Glucose 233 H 74-106 mg/dL Calcium Level 9.3 8.7-10.4 mg/dL Magnesium Level 2.2 1.6-2.6 mg/dL Total Bilirubin 0.6 0.2-1.0 mg/dL Aspartate Amino Transferase (AST) 46 H 13-40 U/L Alanine Aminotransferase (ALT) 20 7-40 U/L Alkaline Phosphatase 60 46-116 U/L Total Protein 7.1 5.7-8.2 g/dL Albumin 4.1 3.2-4.8 g/dL Assessment/Plan Primary Diagnosis STEMI. HTN. History of [place]. Plan Admit patient to the hospital for further evaluation and treatment. Cardiac cath. Risks and benefits discussed with the patient. IVFs. Nitro SL. Aspirin, Lipitor, Metoprolol, Plavix. Morphine for pain management. Telemetry reviewed. Additional plan as per the hospital course. A total of 45 minutes was spent reviewing the patient record, examining the patient, making a diagnostic and therapeutic plan, discussing this plan with medical personnel, following up on diagnostic studies and following the patient for clinical stability excluding any and all procedures. At least 50% of this time was spent in direct, [id number] contact. Plan discussed with: Patient KEYUR KAMARA MD May 05, 2024 21:51
[2024-05-06] VITALS (8 sets, daily range): BP systolic 104–147; BP diastolic 64–84; PULSE 65–100; RESP 14–20; TEMP 98.1–99; O2SAT 95–97
[2024-05-06] MEDS ORDERED: DEXTROSE (50%) 50ML SYRG IV ONE (17:15)
[2024-05-06] MEDS ORDERED: D5W 5% 1,000 ML IV SCH (17:15)
--- NOTE | 2024-05-06 23:10 | DVHPN2 ---
Progress Note - Dictate Date Seen: May 06, 2024 Medical Necessity Reason Pt with a Central, PICC or Fol: No Subjective Patient was seen and evaluated in follow up. Patient is s/p cardiac cath, tolerated procedure well. Patient is complaining of chest pain. Patient is refusing Adprin, Metoprolol and Plavix Telemetry reviewed. vital signs Vital Sign Date Time Temp Pulse Resp B/P (MAP) Pulse Ox O2 Delivery O2 Flow Rate FiO2 05/06/24 16:50 98.5 74 17 147/84 (105) 96 98.5 05/06/24 08:00 Room Air* 0 21 Total Intake and Output 05/05/24 05/05/24 05/06/24 15:00 23:00 07:00 Intake Total 1040 ml 50 ml Balance 1040 ml 50 ml medications Current Medications Medications Dose Ordered Sig/Chaya Route Start Time Stop Time Status Last Admin Dose Admin Sodium Chloride 10 ml Q8HR IV 05/05/24 06:00 05/06/24 13:25 10 ML Nitroglycerin 0.4 mg Q5MINP PRN SL 05/05/24 06:00 Morphine Sulfate 2 mg Q30M PRN IV 05/05/24 06:00 Aspirin 81 mg DAILY PO 05/05/24 10:00 Clopidogrel Bisulfate 75 mg DAILY PO 05/05/24 10:00 Metoprolol Tartrate 25 mg DAILY PO 05/05/24 10:00 Atorvastatin Calcium 80 mg HS PO 05/05/24 22:00 05/05/24 21:15 80 MG objective GENERAL: Awake, alert, oriented. LUNGS: Clear. CARDIOVASCULAR: Heart sounds are good. ABDOMEN: Soft. laboratory and microbiology Laboratory Tests 05/05/24 04:20 Test 05/05/24 04:20 Range/Units Serum Glucose 233 H 74-106 mg/dL Problem List STEMI. HTN. History of [place]. Assessment/Plan Continued all current supportive medical care. IVFs. Nitro SL. Aspirin, Lipitor, Metoprolol, Plavix. Morphine for pain management. Additional plan as per the hospital course. Plan discussed with: Patient KEYUR KAMARA MD May 06, 2024 19:31
[2024-05-07] VITALS (8 sets, daily range): BP systolic 124–160; BP diastolic 76–96; PULSE 64–71; RESP 16–19; TEMP 97.6–98.4; O2SAT 95–97
[2024-05-07 06:37] LABS: Alanine Aminotransferase 25 U/L (7-40); Alkaline Phosphatase 53 U/L (46-116); Anion Gap 9 (5-15); BUN/Creatinine Ratio 17.1 (10.0-20.0); Bilirubin, Total 0.8 mg/dL (0.2-1.0); Blood Urea Nitrogen 12 mg/dL (9-23); Calcium 9.5 mg/dL (8.7-10.4); Carbon Dioxide 23 mmol/L (20-31); Chloride 107 mmol/L (98-107); Glucose 97 mg/dL (74-106); Potassium 3.8 mmol/L (3.5-5.1); Sodium 139 mmol/L (136-145); Total Protein 6.8 g/dL (5.7-8.2)
[2024-05-07 06:45] LABS: Aspartate Aminotransferase 99 U/L (13-40)
--- NOTE | 2024-05-07 23:04 | DVHPN2 ---
Progress Note - Dictate Date Seen: May 07, 2024 Medical Necessity Reason Pt with a Central, PICC or Fol: No Subjective Patient was seen and evaluated in follow up. No overnight events. Patient reports feeling better. Hospital staff has not been able to contact patients NOK. AST 99. Telemetry reviewed. vital signs Vital Sign Date Time Temp Pulse Resp B/P (MAP) Pulse Ox O2 Delivery O2 Flow Rate FiO2 05/07/24 21:00 97.6 64 18 146/86 (106) 96 97.6 05/07/24 20:00 Room Air* 0 21 Total Intake and Output 05/06/24 05/06/24 05/07/24 15:00 23:00 07:00 Intake Total 50 ml 650 ml 300 ml Balance 50 ml 650 ml 300 ml medications Current Medications Medications Dose Ordered Sig/Chaya Route Start Time Stop Time Status Last Admin Dose Admin Sodium Chloride 10 ml Q8HR IV 05/05/24 06:00 05/07/24 06:39 10 ML Nitroglycerin 0.4 mg Q5MINP PRN SL 05/05/24 06:00 Morphine Sulfate 2 mg Q30M PRN IV 05/05/24 06:00 Aspirin 81 mg DAILY PO 05/05/24 10:00 05/07/24 12:45 81 MG Clopidogrel Bisulfate 75 mg DAILY PO 05/05/24 10:00 05/07/24 12:37 75 MG Metoprolol Tartrate 25 mg DAILY PO 05/05/24 10:00 05/07/24 12:37 25 MG Atorvastatin Calcium 80 mg HS PO 05/05/24 22:00 05/07/24 21:29 80 MG objective GENERAL: Awake, alert, oriented. LUNGS: Clear. CARDIOVASCULAR: Heart sounds are good. ABDOMEN: Soft. laboratory and microbiology Laboratory Tests 05/07/24 05:31 05/05/24 04:20 Test 05/07/24 05:31 Range/Units Serum Glucose 97 74-106 mg/dL Problem List STEMI. HTN. History of [place]. Assessment/Plan Continued all current supportive medical care. IVFs. Nitro SL. Aspirin, Lipitor, Metoprolol, Plavix. Morphine for pain management. Additional plan as per the hospital course. Plan discussed with: Patient KEYUR KAMARA MD May 07, 2024 23:04
[2024-05-08] VITALS (8 sets, daily range): BP systolic 119–147; BP diastolic 70–92; PULSE 62–76; RESP 16–18; TEMP 97.7–98.5; O2SAT 94–99
--- NOTE | 2024-05-08 21:42 | DVHDS2 ---
Discharge Summary Date of Admission May 05, 2024 at 06:00 Date of Discharge: May 08, 2024 Labs/Diagnostic Data: Laboratory Results Test 05/07/24 05:31 05/05/24 14:08 05/05/24 04:20 Sodium Level 139 mmol/L (136-145) Potassium Level 3.8 mmol/L (3.5-5.1) Chloride Level 107 mmol/L (98-107) Carbon Dioxide Level 23 mmol/L (20-31) Anion Gap 9 (5-15) Blood Urea Nitrogen 12 mg/dL (9-23) Creatinine 0.70 mg/dL (0.550-1.02) Glomerular Filtration Rate Calc 90 mL/min (>90) BUN/Creatinine Ratio 17.1 (10.0-20.0) Serum Glucose 97 mg/dL (74-106) Calcium Level 9.5 mg/dL (8.7-10.4) Total Bilirubin 0.8 mg/dL (0.2-1.0) Aspartate Amino Transferase (AST) 99 U/L (13-40) Alanine Aminotransferase (ALT) 25 U/L (7-40) Alkaline Phosphatase 53 U/L (46-116) Total Protein 6.8 g/dL (5.7-8.2) Albumin 4.0 g/dL (3.2-4.8) Troponin I High Sensitivity 95611 ng/L (</=34) White Blood Count 6.7 10^3/uL (4.4-10.8) Red Blood Count 4.45 10^6/uL (4.0-5.20) Hemoglobin 13.7 g/dL (12.2-16.2) Hematocrit 40.9 % (36.0-46.0) Mean Corpuscular Volume 91.7 fL (80.0-100.0) Mean Corpuscular Hemoglobin 30.7 pg (28.0-32.0) Mean Corpuscular Hemoglobin Concent 33.5 g/dL (32.0-36.0) Red Cell Distribution Width 14.7 % (11.8-14.3) Platelet Count 376 10^3/uL (140-450) Mean Platelet Volume 7.5 fL (6.9-10.8) Neutrophils (%) (Auto) 44.3 % (37.0-80.0) Lymphocytes (%) (Auto) 45.1 % (10.0-50.0) Monocytes (%) (Auto) 7.1 % (0.0-12.0) Eosinophils (%) (Auto) 2.8 % (0.0-7.0) Basophils (%) (Auto) 0.7 % (0.0-2.0) Neutrophils # (Auto) 3.0 10 ^3/uL (1.6-8.6) Lymphocytes # (Auto) 3.0 10 ^3/uL (0.4-5.4) Monocytes # (Auto) 0.5 10 ^3/uL (0-1.3) Eosinophils # (Auto) 0.2 10 ^3/uL (0-0.8) Basophils # (Auto) 0 10 ^3/uL (0-0.2) Nucleated Red Blood Cells 0.1 % Magnesium Level 2.2 mg/dL (1.6-2.6) Other Laboratory Tests 05/07/24 05:31 05/05/24 04:20 Brief Hx & Hospital Course: Brief Hx:Please refer to H&P. Hospital Course. Patient was admitted for further treatment and evaluation. Patient was started on Aspirin, Lipitor, Metoprolol, Plavix. Patient received Morphine for pain management. Patient underwent cardiac cath, tolerated procedure well. Patient's symptoms improved and patient was stabilized. Patient was cleared for discharge and was stable at the time of discharge. Discharge instructions and prescriptions were given. Patient's vitals were stable at time of discharge. Condition at Discharge: Stable Final Diagnosis/Problems List STEMI. HTN. Unstable angina. History of [place]. Discharge Disposition: Home Discharge Instruct/Medications Diet: Cardiac 2g Na,low cholest Activity: Light activity Activity comment: follow up in dr greene office. Discharge Statement: "Patient was advised to return to the ER or call 911 if any headaches, dizziness, shortness of breath, chest pain, abdominal pain, bleeding, fevers, or worsening of medical condition. Patient was counseled about treatment plan, medications, possible side effects, patientverbalized understanding. All questions were answered to the best of my ability. This discharge took greater then 30 minutes in planning, reviewing documentation, counseling the patient, and discussing with other team members." ASSESSMENT ASSESSMENT Assessment Unstable angina KEYUR KAMARA MD May 08, 2024 21:42
--- NOTE | 2024-05-11 07:21 | DVHOP ---
DATE OF SURGERY: 05/05/2024 TECHNIQUE PERFORMED: * Code STEMI. * Insertion of a 6-Maltese arterial line from right femoral artery under fluoroscopic guidance. * Management of conscious sedation. * Left heart catheterization. * Left ventriculogram. * [place] selective left and right coronary angiography. * Right iliofemoral angiography. COMPLICATIONS: None. ASSISTANTS: Bailee Rodriguez Angela and Irma. INDICATIONS: The patient seen with 10/10 chest pain, ST elevation in II, III, aVF, inverted T waves noted in 1, aVL and the lateral leads. DESCRIPTION OF PROCEDURE: Risks and benefits were discussed in a standard manner. The patient was brought to our medical lab technologist urgently at approximately 04:45 in the morning. The right groin was shaved and was cleaned with soap and Betadine. with the help of 6-Maltese JR4 guiding catheter performed with the help of pigtail catheter. done. The left ventriculogram was done in the right oblique view with total of 20 mL of dye. Post-LV gram, left ventricular angiography had been performed with the help of pull-through technique. Pigtail catheter also had been discontinued. Procedure completed. There were no complications. IMPRESSION: * Normal left main. * The left anterior descending artery is widely opened. Left ventricular artery gives diagonal branch and the diagonal branch from the ostium has underlying 80% narrowing. HORTENCIA grade 3 flow has been noted. The [place] left ventricular artery was widely opened. The patient's right coronary artery is a large dominant artery noted. Mid to distal posterior descending artery normal. Posterolateral branch is normal. The stent had been noted right coronary artery. irregularity noted in the mid right coronary artery any significant stenosis. The patient's ejection fraction is in the range of 55%. Inferior wall has become akinetic. CONCLUSIONS: * Normal left main, left radial artery noted from proximal to distal region of the diagonal artery from the origin to proximal one-third region has 80% narrowing. The patient's circumflex coronary artery normal. * Right coronary artery. Multiple irregularities and moderate degree had been noted in the entire mid proximal to mid distal region of the right coronary artery without evidence of any significant stenosis. * The distal stent in the right coronary artery is widely open. ejection fraction 55%, inferior wall akinesis. PLAN OF ACTION: Advised for conservative medical treatment. Aspirin, Plavix, beta derek, cholesterol reducing medicine. Joey Mejia MD MP/HEYDI/MICAH TID: [id number] RECEIPT: [id number] MTDD
== END 2024-05-08 18:50 | disposition home or self-care (01) | DRG 280 ==
LOC: EDBD 04:14 → ER 04:14 → TELE 06:00 → TELE-WESTW 07:20
PROVIDERS: ADMIT Specialist; ATTEND Specialist
PROC: 4A023N7 Measurement of Cardiac Sampling and Pressure, Left Heart, Percutaneous Approach (ICD-10-PCS; principal; 2024-05-05)
PROC: B211YZZ Fluoroscopy of Multiple Coronary Arteries using Other Contrast (ICD-10-PCS; 2024-05-05)
PROC: B215YZZ Fluoroscopy of Left Heart using Other Contrast (ICD-10-PCS; 2024-05-05)
DX: I21.19 ST elevation (STEMI) myocardial infarction involving other coronary artery of inferior wall (principal); N17.0 Acute kidney failure with tubular necrosis; I10 Essential (primary) hypertension; E78.5 Hyperlipidemia, unspecified; I95.9 Hypotension, unspecified; Z86.73 Personal history of transient ischemic attack (TIA), and cerebral infarction without residual deficits; Z79.899 Other long term (current) drug therapy; I25.2 Old myocardial infarction; F41.9 Anxiety disorder, unspecified
CPT/HCPCS: 36415; 80053; 83735; 84484; 85025; 93005; 93458; 99152; C1887; G0378; J2250; J2405; Q9967

== ENCOUNTER 2025-02-25 12:00 | Inpatient (IN) | payer OTHER ==
[~2025-02-25] VITALS: Ht 152.4 cm; Wt 53.1 kg
[~2025-02-25 12:00] MED LIST changes: +ATOR20TA50 PO; +GEMF-66 PO; +LATA0.008 EACHEYE; +LOSA-534 PO; +METO-289 PO
[2025-02-25 12:19] VITALS: PULSE 140; RESP 16; O2SAT 98
--- NOTE | 2025-02-25 12:19 | ED.PDOC ---
History of Present Illness HPI Comments HPI: Initial Vitals BP:132/97 HR:150 Past Medical history: HTN, hyperlipidemia Past Surgical history:Cardiac Stents placed, Hysterectomy Medications: Takes Losartan 50mg x1 per day, Metoprolol 50mg x1 per day Social History: Denies smoking, ETOH, and drug use. Allergies: NKDA HPI: Poor Historian. 79-year-old female REVIEW OF SYSTEMS: CONSTITUTIONAL: Denies acute: fever, diaphoresis, chills, HEAD: Denies acute: headache, photophobia Eyes: Denies acute: Double vision, vision loss, eye pain, eye discharge. EARS: Denies acute: tinnitus, hearing loss, ear discharge, ear pain, THROAT: Denies acute: sore throat, swelling, difficulty swallowing , pain with swall owing, change in voice. NECK: Denies acute: neck pain, neck swelling, stiff neck. HEART: Denies acute : palpitations, LUNGS: Denies acute: SOB, wheezing, cough, hemoptysis ABDOMEN: Denies acute: abdominal pain, Nausea, Vomiting, diarrhea, melena , hematemesis, hematochezia SKIN: Denies acute: rash, redness, lesions, itchiness. EXTREMITIES: Denies acute: calf pain, numbness, tingling, weakness, denies pain in extremity. Denies acute: Low back pain. Neuro: Denies acute: focal neurological deficit, motor or sensory focal neurological deficit, tremors, seizure like activity, confusion, dizziness, change in mental status, loss of bowel or bladder function, cauda equina like symptoms. : Denies acute: dysuria, hematuria, flank pain, increase in urinary frequency. PSYCH: Denies acute: hallucination, suicidal ideation, homicidal ideation. FEMALE: Denies acute: abnormal vaginal bleeding, foul odor, unusual discharge. PHYSICAL EXAM: General: ----moderate----acute distress, awake and alert. Head: normocephalic, atraumatic. No raccoon's eyes, no gaspar sign. Neck: supple, trachea is midline, no swelling. Throat: Normal phonation. Eyes:, no erythema, no purulent discharge, no proptosis, no icterus. Heart: Irregular rate and rhythm consistent with atrial fibrillation with RVR, no significant murmur appreciated. Lungs: no apparent respiratory distress, Able to speak in full sentences. No wheezing, no rhonchi, no crackles. No stridors Clear to auscultation bilaterally. Abdomen: Epigastric tender to palpation, non distended, soft, no guarding, no rebound, + bowel sounds. Neuro: Awake, Alert, oriented to name, self, situation, follows commands GCS=15. Speech is normal. Skin: no petechia, no purpura, no cyanosis, non-pale, not jaundice. Lower extremities: --trace bilateral - Pitting edema no deformity, no focal swelling, no calf TTP. Makes eye contact. moves all four extremities. Face: no apparent facial droop. ED COURSE: DISCLAIMER: This medical document was created using an electronic medical record system with voice recognition software and computerized dictation system. Although this document has been carefully reviewed, there might still be some phonetic and typographical errors. Occasional wrong-word or "sound-alike" substitutions may have occurred due to the inherent limitations of voice recognition software. These areas are purely typographical due to imperfections of the software programs and do not reflect any compromise in the patient's medical care. Please read the chart carefully and recognize, using context, where these substitutions have occurred. Chief Complaint: Chest Pain Time Seen by MD: 12:20 Reviewed Notes: Nurses Notes, Medications, Allergies Allergies: Coded Allergies: NO KNOWN ALLERGIES (Unverified , 06/16/21) Home Meds Active Scripts Ibuprofen Micronized (Ibuprofen) 600 Mg Tab, 600 MG PO TIDP PRN for 30 Days, #90 TAB Prov:LEIGHANN CRUZ MD 02/17/23 Clindamycin Hcl (Clindamycin Hcl) 300 Mg Cap, 600 MG PO TID for 10 Days, #60 CAP Prov:LEIGHANN CRUZ MD 02/17/23 Doxycycline Hyclate (DOXYCYCLINE HYCLATE) 100 Mg Tab, 100 MG PO BID for 10 Days, #20 TAB Prov:LEIGHANN CRUZ MD 02/17/23 Losartan Potassium (Losartan Potassium) 25 Mg Tab, 1 TAB PO DAILY, #30 TAB 0 Refills Prov:ISABELLA CHRISTINA MD 11/14/20 Metoprolol Tartrate (Metoprolol Tartrate) 25 Mg Tab, 0.5 TAB PO BID for 30 Days, #30 TAB 1 Refill Metoprolol 12.5 mg po bid Prov:ISABELLA CHRISTINA MD 11/14/20 Atorvastatin Calcium (ATORVASTATIN CALCIUM) 40 Mg Tab, 1 TAB PO DAILY, #30 TAB 0 Refills Prov:ISABELLA CHRISTINA MD 11/14/20 Aspirin (Aspir-81) 81 Mg Tab, 1 TAB PO DAILY, #30 TAB 0 Refills Prov:ISABELLA CHRISTINA MD 11/14/20 Reported Medications Gemfibrozil (Gemfibrozil) 600 Mg Tab, 1 TAB PO 05/05/24 Latanoprost (LATANOPROST) 0.005 % Hallie, 1 DROP EACHEYE 05/05/24 Losartan Potassium (Losartan Potassium) 50 Mg Tab, 1 TAB PO DAILY 05/05/24 Metoprolol Succinate (Metoprolol Succinate Er) 50 Mg Tab, 1 TAB PO DAILY 05/05/24 Atorvastatin Calcium (ATORVASTATIN CALCIUM) 20 Mg Tab, 1 TAB PO DAILY 05/05/24 Cetirizine Hcl (Zyrtec Allergy) 10 Mg Tab, 10 MG PO, TAB 07/24/21 B-Complex W/ Folic Acid (B Complex) Tab, 1 OR, TAB 07/24/21 Cholecalciferol (VITAMIN D3) 2,000 Unit Tab, 2000 UNIT OR, TAB 07/24/21 Carvedilol (Coreg) 12.5 Mg Tab, 12.5 MG PO, TAB 07/24/21 Ezetimibe (Zetia) 10 Mg Tab, 10 MG PO, TAB 07/24/21 [Diazepam] (Diazepam) No Conflict Check 05/14/12 [Ativan] No Conflict Check 05/14/12 [Zolpidem] No Conflict Check 05/14/12 Information Source: Patient, Emergency Med Personnel Mode of Arrival: Wheelchair Was a procedure done? Was a procedure done?: No Differential Dx Considerations may include: Ddx include but not limitied to gastritis, musculoskeletal pain, radiculopathy, atypical chest pain, dissection, aneurysm, ACS, unstable angina, hiatal hernia, GERD, anxiety, costochondritis, PE, pneumothroax, neoplasm, cardiac ischemia, drug abuse, anemia. As far as the arrhythmia: V-tach, VFib, atrial flutter, atrial fibrillation, WPW, pulmonary embolus, PVC, Pac, electrolyte abnormality, X-Ray, Labs, Meds, VS Vital Signs Date Time Temp Pulse Resp B/P (MAP) Pulse Ox O2 Delivery O2 Flow Rate FiO2 02/25/25 15:16 105 02/25/25 14:39 95 118/88 02/25/25 14:08 140 120/96 02/25/25 13:38 141 02/25/25 13:27 143 121/91 02/25/25 13:21 141 15 123/96 (105) 98 02/25/25 12:19 140 16 98 Room Air* 2 N/A Nasal Cannula* 02/25/25 12:19 98.6 140 16 134/103 (113) 98 98.6 02/25/25 12:15 140 02/25/25 12:05 98.7 140 20 132/104 97 98.7 Lab Test 02/25/25 14:34 02/25/25 13:03 Range/Units Troponin I High Sensitivity 37 *H 35 *H </=34 ng/L White Blood Count 6.3 4.4-10.8 10^3/uL Red Blood Count 4.46 4.0-5.20 10^6/uL Hemoglobin 13.3 12.2-16.2 g/dL Hematocrit 39.3 36.0-46.0 % Mean Corpuscular Volume 88.1 80.0-100.0 fL Mean Corpuscular Hemoglobin 29.8 28.0-32.0 pg Mean Corpuscular Hemoglobin Concent 33.9 32.0-36.0 g/dL Red Cell Distribution Width 15.1 H 11.8-14.3 % Platelet Count 292 140-450 10^3/uL Mean Platelet Volume 7.4 6.9-10.8 fL Neutrophils (%) (Auto) 75.4 37.0-80.0 % Lymphocytes (%) (Auto) 17.6 10.0-50.0 % Monocytes (%) (Auto) 5.5 0.0-12.0 % Eosinophils (%) (Auto) 0.6 0.0-7.0 % Basophils (%) (Auto) 0.9 0.0-2.0 % Neutrophils # (Auto) 4.7 1.6-8.6 10 ^3/uL Lymphocytes # (Auto) 1.1 0.4-5.4 10 ^3/uL Monocytes # (Auto) 0.3 0-1.3 10 ^3/uL Eosinophils # (Auto) 0 0-0.8 10 ^3/uL Basophils # (Auto) 0.1 0-0.2 10 ^3/uL Nucleated Red Blood Cells 0.2 % Prothrombin Time 13.5 H 9.3-11.8 sec Prothrombin Time INR 1.31 H 0.9-1.15 Activated Partial Thromboplast Time 29.9 24.5-34.5 SEC Sodium Level 135 L 136-145 mmol/L Potassium Level 3.5 3.5-5.1 mmol/L Chloride Level 101 98-107 mmol/L Carbon Dioxide Level 20 20-31 mmol/L Anion Gap 14 5-15 Blood Urea Nitrogen 13 9-23 mg/dL Creatinine 1.10 H 0.550-1.02 mg/dL Glomerular Filtration Rate Calc 52 >90 mL/min BUN/Creatinine Ratio 11.8 10.0-20.0 Serum Glucose 119 H 74-106 mg/dL Lactic Acid Level 1.9 0.4-2.0 mmol/L Calcium Level 8.5 L 8.7-10.4 mg/dL Magnesium Level 2.0 1.6-2.6 mg/dL Total Bilirubin 1.1 H 0.2-1.0 mg/dL Aspartate Amino Transferase (AST) 56 H 13-40 U/L Alanine Aminotransferase (ALT) 25 7-40 U/L Alkaline Phosphatase 93 46-116 U/L B-Type Natriuretic Peptide 859.76 0-100 pg/mL Total Protein 6.9 5.7-8.2 g/dL Albumin 3.8 3.2-4.8 g/dL Lipase 48 12-53 U/L Thyroid Stimulating Hormone (TSH) 1.91 0.55-4.78 uIU/mL Free Thyroxine (T4) Calculated 1.65 0.89-1.76 ng/dL Current Medications Medications (Trade) Dose Ordered Sig/Chaya Route Start Time Stop Time Status Last Admin Metoprolol Tartrate (Lopressor) 5 mg ONCE ONCE IV 02/25/25 13:15 02/25/25 13:16 DC 02/25/25 13:27 [facility] [id number] [place] [id number] Ph: [phone] DIAGNOSTIC IMAGING Diagnostic Imaging Report : [id number] Signed PATIENT: TRUNG KUNZ ACCT: [id number] UNIT: [id number] : 1945 LOC: ER ROOM / BED: / AGE / SEX: 79 / F ADM STATUS: REG ER SERVICE 1211 ORDERING PHYSICIAN: ALPA DUNBAR DO PROCEDURE(s): CXR1 - CHEST XRAY 1 VIEW REASON: CP ORDER NUMBER(s): [id number], ACCESSION NUMBER(s): [id number] EXAM: XY CHEST XRAY 1 VIEW Indication: CP Technique: Single frontal view of the chest was obtained Comparison: XY CHEST PORTABLE on DOS: 02/25/25 FINDINGS: Lines and Tubes: None Lungs: No focal consolidation. Mild pulmonary vascular congestion. Pleura: No effusion. No pneumothorax. Cardiomediastinal contours: Cardiomegaly. Atherosclerotic vascular calcifications of the thoracic aorta are noted. Bones: No acute osseous abnormality. IMPRESSION: Cardiomegaly with mild pulmonary vascular congestion. ATED BY: KWAME PAUL MD DICTATED DATE/TIME: 02/25/251243 SIGNED BY: KWAME PAUL MD SIGNED DATE/TIME: 02/25/251243 CC: Time of 1ST Reevaluation: 12:50 Reevaluation 1ST: Unchanged Time of 2ND Reevaluation: 14:16 (The case was discussed with the admitting team (HPI, physical exam, labs and diagnostic tests that were available at the time of disposition, ED course, treatment plan) on the phone. They agreed to admit the patient to their service and assume care of this patient from this point forward. --- SELINA.) Patient Education/Counseling: Diagnosis, Treatment Family Education/Counseling: Other Comments MDM: patient presented with the above HPI.----cardiac chest pain/new onset atrial fibrillation with RVR--workup was initiated. patient was found with the above mentioned diagnosis. the following medications were ordered: please refer to order lists of meds and tests obtained by myself Dr. Dunbar. Patient ED course and VS have been stabilized. Patient has been reassessed in the ED and remained in a stable condition. Pertinent incidental findings were discussed with the patient and/or family. Patient/family voices understanding and is agreeable with plan. Patient has been observed in the ED adequate length of time to insure improvement/stability. Escalation of care considered: Consideration of escalation to observation or admission Patient was given her oral p.o. medications she brought with her in her purse. She was also given Lopressor 5 mg IV here in the ED. Patient converted to sinus rhythm. Her chest pain has resolved essentially of on arrival. Patient was ADMITTED to the medicine team for further evaluation and treatment of their presentation. Patient was given aspirin by the admitting team. All the reports of any imaging studies that were ordered by myself were reviewed by myself. SEPSIS Sepsis Screen Date sepsis recognized/suspect: Feb 25, 2025 Time Sepsis recognized/suspect: 1211 Recent Procedure: No On Antibiotic Therapy: No Respiratory Rate >20: No Heart Rate >90: Yes Temp<36 C (96.8 F) or >38.3 C: No SBP <90 or MAP <65 mmHG: No New Acute Mental Status Change: No Is the patient on CPAP, BIPAP,: No Physician Orders Electrocardigram (02/25/25 12:11) Electrocardigram (02/25/25 13:11) Electrocardigram (02/25/25 15:11) Chest Xray 1 View (02/25/25 12:11) Envelope Cutter (02/25/25 ) Urinalysis (02/25/25 12:11) Ct Ab Pel Wo Con-No Oral Or Iv (02/25/25 12:11) Blood Pressure (02/25/25 ) Pulse Oxymetry (02/25/25 13:30) Vital Signs Date Time Temp Pulse Resp B/P (MAP) Pulse Ox O2 Delivery O2 Flow Rate FiO2 02/25/25 15:16 105 02/25/25 14:39 95 118/88 02/25/25 14:08 140 120/96 02/25/25 13:38 141 02/25/25 13:27 143 121/91 02/25/25 13:21 141 15 123/96 (105) 98 02/25/25 12:19 140 16 98 Room Air* 2 N/A Nasal Cannula* 02/25/25 12:19 98.6 140 16 134/103 (113) 98 98.6 02/25/25 12:15 140 11/3/25 12:05 98.7 140 20 132/104 97 98.7 Laboratory Tests Test 02/25/25 13:03 Lactic Acid Level 1.9 mmol/L (0.4-2.0) White Blood Count 6.3 10^3/uL (4.4-10.8) Medications Medications Dose Ordered Sig/Chaya Route Start Time Stop Time Status Last Admin Dose Admin Metoprolol Tartrate 5 mg ONCE ONCE IV 02/25/25 13:15 02/25/25 13:16 DC 02/25/25 13:27 Departure 1 Departure Time of Disposition: 14:17 Impression: Primary Impression: Atrial fibrillation with RVR Additional Impressions: Chest pain Elevated troponin Cardiomegaly Pulmonary vascular congestion Disposition: ADMITTED INPATIENT Admit to: [facility] Condition: Guarded Discharged With: Self Critical Care Note Critical Care Time?: Yes (45 min-critical care time only) Heart Score Heart Score: Heart Score Response (Comments) Value History Moderate Suspicious [address]-Deviation 2 Age >65 2 Risk Factors >3 or Hx ASHD 2 Troponin 1-2 x's Normal limit 1 Total 8 I personally scribed for ALPA DUNBAR DO ([email or web address]) on 02/25/25 at 12:19. Electronically submitted by Earl Gonzalez (Seguric[employer]). I personally scribed for ALPA DUNBAR DO ([email or web address]) on 02/25/25 at 15:12. Electronically submitted by Earl Gonzalez (Seguricel). ALPA DUNBAR DO Feb 25, 2025 12:19
--- NOTE | 2025-02-25 12:47 | DVH ---
EXAM: XY CHEST XRAY 1 VIEW Indication: CP Technique: Single frontal view of the chest was obtained Comparison: XY CHEST PORTABLE on DOS: 02/25/25 FINDINGS: Lines and Tubes: None Lungs: No focal consolidation. Mild pulmonary vascular congestion. Pleura: No effusion. No pneumothorax. Cardiomediastinal contours: Cardiomegaly. Atherosclerotic vascular calcifications of the thoracic aor ta are noted. Bones: No acute osseous abnormality. IMPRESSION: Cardiomegaly with mild pulmonary vascular congestion.
[2025-02-25] MEDS: METOPROLOL TARTRATE 1MG/1ML-5ML VIAL IV ONE ×2 (13:27→14:39)
[2025-02-25 13:38] LABS: Hematocrit 39.3 % (36.0-46.0); Hemoglobin 13.3 g/dL (12.2-16.2); Mean Corpuscular Hemoglobin 29.8 pg (28.0-32.0); Mean Corpuscular Volume 88.1 fL (80.0-100.0); Nucleated Red Blood Cells % 0.2 %
[2025-02-25 13:46] LABS: Chloride 102 mmol/L (98-107); Potassium 3.9 mmol/L (3.5-5.1); Sodium 135 mmol/L (136-145)
[2025-02-25 13:47] LABS: Anion Gap 13 (5-15); Carbon Dioxide 20 mmol/L (20-31)
[2025-02-25 13:48] LABS: Calcium 8.7 mg/dL (8.7-10.4)
[2025-02-25 13:52] LABS: Glucose 118 mg/dL (74-106)
[2025-02-25 13:54] LABS: Alanine Aminotransferase 25 U/L (7-40); Albumin 3.8 g/dL (3.2-4.8); Alkaline Phosphatase 93 U/L (46-116); Anion Gap 14 (5-15); BUN/Creatinine Ratio 11.8 (10.0-20.0); Bilirubin, Total 1.1 mg/dL (0.2-1.0); Blood Urea Nitrogen 13 mg/dL (9-23); Calcium 8.5 mg/dL (8.7-10.4); Carbon Dioxide 20 mmol/L (20-31); Chloride 101 mmol/L (98-107); Glucose 119 mg/dL (74-106); Magnesium 2.0 mg/dL (1.6-2.6); Potassium 3.5 mmol/L (3.5-5.1); Sodium 135 mmol/L (136-145); Total Protein 6.9 g/dL (5.7-8.2)
[2025-02-25 14:06] LABS: Lipase 48 U/L (12-53)
[2025-02-25 14:28] LABS: BUN/Creatinine Ratio 15.7 (10.0-20.0); Blood Urea Nitrogen 17 mg/dL (9-23)
[2025-02-25] MEDS ORDERED: NITROGLYCERIN 0.4 MG SL TAB SL PRN (15:30)
[2025-02-25] MEDS ORDERED: MORPHINE SULFATE INJ 2 MG/ml SYRG IV PRN (15:30)
[2025-02-25] MEDS: METOPROLOL TARTRATE 25 MG TAB PO ONE (15:45)
--- NOTE | 2025-02-25 15:47 | DVH ---
CHEST RADIOGRAPH Indication: cp Technique: Single frontal view of the chest was obtained Comparison: XY CHEST XRAY 1 VIEW on DOS: 02/25/25 FINDINGS: The cardiac silhouette is enlarged. The lungs demonstrate perihilar airspace opacities. Left basilar airspace opacities. Aortic atherosclerotic disease The pulmonary vasculature is prominent. Small left pleural effusion. There is no pneumothorax. IMPRESSION: As above EY AMES
[2025-02-25 16:36] LABS: INR 1.31 (0.9-1.15); Partial Thromboplastin Time 29.9 SEC (24.5-34.5); Prothrombin Time 13.5 sec (9.3-11.8)
[2025-02-25] MEDS: METOPROLOL TARTRATE 1MG/1ML-5ML VIAL IV PRN ×2 (18:17→20:01)
[2025-02-25] MEDS: AMIODARONE BOLUS KIT 100 ML IV ONE (20:36)
--- NOTE | 2025-02-25 20:59 | DVHSR ---
APPROVED REPORT EXAM: Two-dimensional and M-mode echocardiogram with Doppler and color Doppler. Blood Pressure: 118/88 mmHg INDICATION Atrial Fibrillation RISK FACTORS Height: 5'0", Weight: 114 DIMENSIONS LVDd4.9 (3.8-5.7cm)LA (2D)4.9 (1.9-4.0cm)Aortic Root3.3 (2.0-3.7cm) LVDs3.3 (2.5-4.0cm)LA (MM) (1.9-4.0cm)Aortic Cusp Exc1.2 (1.5-2.0cm) EF (%) 50.0 (55-70%)Rt. Atrium4.9 (1.9-4.0cm)Asc. Aorta cm IVSd1.0 (0.7-1.1cm)RV (D)3.8 (1.8-2.4cm) PWd1.0 (0.7-1.1cm) Mitral Valve MitralMitral Stenosis E wave1.37m/sMV Mean GR.mmHg E/A ratio0.02D MVAcm2 Aortic Valve Aortic ValveAortic Stenosis V10.58m/Juanita Mean GR.2mmHg V20.96m/Juanita Peak GR.4mmHg LVOT Diameter1.8 (1.8-2.4cm)Doppler AVA1.54cm2 Pulmonic Valve V20.57m/s Tricuspid Valve TR Velocity3.35m/s [id number] Conclusion LV EF IS 50% SIGNIFICANTLY DILATED LA MODERATE DEGREE TR MILD AORTIC REGURGITATION MODERATELY SEVERE PULMONARY HYPERTENSION RVSP IS 48 MM OF HG AND IS MODERATELY HIGH NO EFFUSION
[2025-02-25 21:09] VITALS: PULSE 147; RESP 19; O2SAT 97
[2025-02-25] MEDS: METOPROLOL TARTRATE 25 MG TAB PO SCH (22:00)
[2025-02-25] MEDS: ENOXAPARIN SOD 60 MG/0.6 ML SYRINGE SC SCH (22:00)
[2025-02-25] MEDS: ATORVASTATIN 20 MG TAB PO SCH (22:00)
[2025-02-25 22:34] VITALS: BP 115/91; PULSE 75; PULSE 83; RESP 16; RESP 17; TEMP 97.5; O2SAT 98; O2SAT 99
[2025-02-26] VITALS (8 sets, daily range): BP systolic 93–131; BP diastolic 67–89; PULSE 72–105; RESP 16–20; TEMP 97.4–98.2; O2SAT 94–100
--- NOTE | 2025-02-26 00:21 | DVHHP2 ---
Admitting Diagnosis: Afib with RVR History of Present Illness History Source: Patient Exam Limitations: No limitations HPI Mrs. Bobbi Beck is a 79 yo female with a history of hypertension, hyperlipidemia, Cardiac stent x1 x 12 years ago, patient presents with a chief complaint of acid reflux, palpitations, chest pain. Patient sent from for evaluation of afib with RVR. Patient reports she has been having acid reflux x 3 months with worsening symptoms. Patient currently denies chest pain, dyspnea, palpitations, nausea, vomiting, diarrhea,constipation. Patient found to be in afib with RVR. Patient admitted for further evaluation and treatment. Home Meds Active Scripts Ibuprofen Micronized (Ibuprofen) 600 Mg Tab, 600 MG PO TIDP PRN for 30 Days, #90 TAB Prov:LEIGHANN CRUZ MD 02/17/23 Clindamycin Hcl (Clindamycin Hcl) 300 Mg Cap, 600 MG PO TID for 10 Days, #60 CAP Prov:LEIGHANN CRUZ MD 02/17/23 Doxycycline Hyclate (DOXYCYCLINE HYCLATE) 100 Mg Tab, 100 MG PO BID for 10 Days, #20 TAB Prov:LEIGHANN CRUZ MD 02/17/23 Losartan Potassium (Losartan Potassium) 25 Mg Tab, 1 TAB PO DAILY, #30 TAB 0 Refills Prov:ISABELLA CHRISTINA MD 11/14/20 Metoprolol Tartrate (Metoprolol Tartrate) 25 Mg Tab, 0.5 TAB PO BID for 30 Days, #30 TAB 1 Refill Metoprolol 12.5 mg po bid Prov:ISABELLA CHRISTINA MD 11/14/20 Atorvastatin Calcium (ATORVASTATIN CALCIUM) 40 Mg Tab, 1 TAB PO DAILY, #30 TAB 0 Refills Prov:ISABELLA CHRISTINA MD 11/14/20 Aspirin (Aspir-81) 81 Mg Tab, 1 TAB PO DAILY, #30 TAB 0 Refills Prov:ISABELLA CHRISTINA MD 11/14/20 Reported Medications Metoprolol Succinate (Metoprolol Succinate Er) 50 Mg Tab, 1 TAB PO DAILY, #90 TAB 1 Refill 02/26/25 Gemfibrozil (Gemfibrozil) 600 Mg Tab, 1 TAB PO 05/05/24 Latanoprost (LATANOPROST) 0.005 % Hallie, 1 DROP EACHEYE 05/05/24 Losartan Potassium (Losartan Potassium) 50 Mg Tab, 1 TAB PO DAILY 05/05/24 Metoprolol Succinate (Metoprolol Succinate Er) 50 Mg Tab, 1 TAB PO DAILY 05/05/24 Atorvastatin Calcium (ATORVASTATIN CALCIUM) 20 Mg Tab, 1 TAB PO DAILY 05/05/24 Cetirizine Hcl (Zyrtec Allergy) 10 Mg Tab, 10 MG PO, TAB 07/24/21 B-Complex W/ Folic Acid (B Complex) Tab, 1 OR, TAB 07/24/21 Cholecalciferol (VITAMIN D3) 2,000 Unit Tab, 2000 UNIT OR, TAB 07/24/21 Carvedilol (Coreg) 12.5 Mg Tab, 12.5 MG PO, TAB 07/24/21 Ezetimibe (Zetia) 10 Mg Tab, 10 MG PO, TAB 07/24/21 [Diazepam] (Diazepam) No Conflict Check 05/14/12 [Ativan] No Conflict Check 05/14/12 [Zolpidem] No Conflict Check 05/14/12 Past Medical History Cardiac: HTN, Hyperlipidemia Pulmonary: No pertinent Hx Central Nervous System: No pertinent Hx GI: No pertinent Hx Hemotology/Oncology: No pertinent Hx Hepatobiliary: No pertinent Hx Psychiatric: No pertinent Hx Musculoskeletal: No pertinent Hx Rheumotologic: No pertinent Hx Infectious Disease: No peritnent Hx ENT: No pertinent Hx Renal/: No pertinent Hx Endocrine: No pertinent Hx Dermatology: No pertinent Hx Others cardiac stent x1 Patient Family History: Cerebrovascular accident (CVA) G8 FATHER G8 BROTHER Smoker: No Hx (Negative) Alocohol: None Drugs: None Lives with: Alone Domestic Violence: Neg Review of Systems Constitutional: No symptom reported Ears, Nose, & Throat: No symptom reported Eyes: No symptom reported Pulmonary/Respiratory: No symptom reported Cardiovascular: No symptom reported Gastrointestinal: No symptom reported Genitourinary: No symptom reported Musculoskeletal: No symptom reported Skin: No symptom reported Psychiatric: No symptom reported Endocrine: No symptom reported Hemotologic/Lymphatic: No symptom reported H&P Exam Vital Signs Vital Signs Date Time Temp Pulse Resp B/P (MAP) Pulse Ox O2 Delivery O2 Flow Rate FiO2 02/25/25 22:34 97.5 83 17 115/91 (99) 99 97.5 02/25/25 21:09 Room Air* 0 21 General Appeara: Well developed, Well nourished, Normal Appearance Head Exam: Normal inspection Neck Exam: Normal inspection, Non-tender, Normal alignment Eye Exam: bilateral eye Normal inspection, bilateral eye PERRL, bilateral eye EOMI Ear Exam: bilateral ear Auricle normal Nasal Exam: Normal inspection Mouth: Normal Inspection Pulmonary/Respiratory: Normal inspection, Normal breath sounds, Chest non- tender, Lungs clear Cardiovascular/Chest: Normal inspection, Normal Rhythm, Irregularly irregular Peripheral Pulses: 2+ dorsalis pedis (R), 2+ dorsalis pedis (L), 2+ Radial (R), 2+ Radial (L) Abdominal Exam: Normal bowel sounds, Soft, No tenderness Neuro/Mental St: Alert, Oriented Appearance: Appropriate appearance, Appropriate insight Eye contact/ Speech: Cooperative, Good eye contact, Normal speech Thoughts/Psych: Normal thought pattern Skin Exam: Normal inspection, Normal color, Warm/dry SEPSIS Sepsis Screen Date sepsis recognized/suspect: Feb 25, 2025 Time Sepsis recognized/suspect: 1929 Recent Procedure: No On Antibiotic Therapy: No Respiratory Rate >20: No Heart Rate >90: Yes Temp<36 C (96.8 F) or >38.3 C: No SBP <90 or MAP <65 mmHG: No New Acute Mental Status Change: No Is the patient on CPAP, BIPAP,: No Physician Orders Furosemide Injection (Lasix Injection) (02/26/25 06:00) Metoprolol Inj (Lopressor) (02/25/25 18:30) Amiodarone 450mg/250ml Ae (Cordarone) (02/25/25 20:45) Amiodarone 450mg/250ml Ae (Cordarone) (02/26/25 02:45) Vital Signs Date Time Temp Pulse Resp B/P (MAP) Pulse Ox O2 Delivery O2 Flow Rate FiO2 02/25/25 22:34 97.5 83 17 115/91 (99) 99 97.5 02/25/25 21:28 92 21 93/68 (76) 97 02/25/25 21:09 147 19 97 Room Air* 0 21 02/25/25 21:09 83 93/68 02/25/25 20:01 148 116/80 02/25/25 20:00 146 02/25/25 19:30 97.9 147 19 126/96 (106) 97 97.9 11/3/25 19:17 146 128/96 02/25/25 18:17 147 128/96 02/25/25 18:00 146 16 128/96 (107) 95 02/25/25 17:00 98.1 99 16 132/83 (99) 95 98.1 Laboratory Tests Test 02/25/25 13:03 Lactic Acid Level 1.9 mmol/L (0.4-2.0) White Blood Count 6.3 10^3/uL (4.4-10.8) Medications Medications Dose Ordered Sig/Chaya Route Start Time Stop Time Status Last Admin Dose Admin Amiodarone HCl 100 ml @ 600 mls/hr ONCE ONCE IV 02/25/25 20:30 02/25/25 20:39 DC 02/25/25 20:36 600 MLS/HR Amiodarone HCl 250 ml @ 33.33 mls/ hr Q7H31M ONCE IV 02/25/25 20:45 02/26/25 04:15 02/25/25 20:45 33.33 MLS/HR Metoprolol Tartrate 2.5 mg Q4HPRN PRN IV 02/25/25 18:30 02/25/25 20:01 2.5 MG Metoprolol Tartrate 2.5 mg Q6HPRN PRN IV 02/25/25 15:45 02/25/25 18:23 DC 02/25/25 18:17 2.5 MG Metoprolol Tartrate 5 mg ONCE ONCE IV 02/25/25 13:15 02/25/25 13:16 DC 02/25/25 13:27 5 MG Labs/Xrays Labs Test 02/25/25 23:06 02/25/25 13:03 Range/Units Troponin I High Sensitivity 105 *H </=34 ng/L White Blood Count 6.3 4.4-10.8 10^3/uL Red Blood Count 4.46 4.0-5.20 10^6/uL Hemoglobin 13.3 12.2-16.2 g/dL Hematocrit 39.3 36.0-46.0 % Mean Corpuscular Volume 88.1 80.0-100.0 fL Mean Corpuscular Hemoglobin 29.8 28.0-32.0 pg Mean Corpuscular Hemoglobin Concent 33.9 32.0-36.0 g/dL Red Cell Distribution Width 15.1 H 11.8-14.3 % Platelet Count 292 140-450 10^3/uL Mean Platelet Volume 7.4 6.9-10.8 fL Neutrophils (%) (Auto) 75.4 37.0-80.0 % Lymphocytes (%) (Auto) 17.6 10.0-50.0 % Monocytes (%) (Auto) 5.5 0.0-12.0 % Eosinophils (%) (Auto) 0.6 0.0-7.0 % Basophils (%) (Auto) 0.9 0.0-2.0 % Neutrophils # (Auto) 4.7 1.6-8.6 10 ^3/uL Lymphocytes # (Auto) 1.1 0.4-5.4 10 ^3/uL Monocytes # (Auto) 0.3 0-1.3 10 ^3/uL Eosinophils # (Auto) 0 0-0.8 10 ^3/uL Basophils # (Auto) 0.1 0-0.2 10 ^3/uL Nucleated Red Blood Cells 0.2 % Prothrombin Time 13.5 H 9.3-11.8 sec Prothrombin Time INR 1.31 H 0.9-1.15 Activated Partial Thromboplast Time 29.9 24.5-34.5 SEC Sodium Level 135 L 136-145 mmol/L Potassium Level 3.5 3.5-5.1 mmol/L Chloride Level 101 98-107 mmol/L Carbon Dioxide Level 20 20-31 mmol/L Anion Gap 14 5-15 Blood Urea Nitrogen 13 9-23 mg/dL Creatinine 1.10 H 0.550-1.02 mg/dL Glomerular Filtration Rate Calc 52 >90 mL/min BUN/Creatinine Ratio 11.8 10.0-20.0 Serum Glucose 119 H 74-106 mg/dL Lactic Acid Level 1.9 0.4-2.0 mmol/L Calcium Level 8.5 L 8.7-10.4 mg/dL Magnesium Level 2.0 1.6-2.6 mg/dL Total Bilirubin 1.1 H 0.2-1.0 mg/dL Aspartate Amino Transferase (AST) 56 H 13-40 U/L Alanine Aminotransferase (ALT) 25 7-40 U/L Alkaline Phosphatase 93 46-116 U/L B-Type Natriuretic Peptide 859.76 0-100 pg/mL Total Protein 6.9 5.7-8.2 g/dL Albumin 3.8 3.2-4.8 g/dL Lipase 48 12-53 U/L Thyroid Stimulating Hormone (TSH) 1.91 0.55-4.78 uIU/mL Free Thyroxine (T4) Calculated 1.65 0.89-1.76 ng/dL Assessment/Plan Problem List: (1) Atrial fibrillation with RVR (2) Elevated troponin Plan This is a 79 yo female with a known history of hypertension, hyperlipidemia, cardiac stents who presents to the hospital with palpitations, acid reflux found to have 1. Atrial fibrillation with RVR 2. Elevated troponin 3. Hypertension 4. Hyperlipidemia 5. CHF Plan Admit Telemetry Cardiology consultation, 2D echo, serial troponin levels, ASA, Statin, Beta [place] Lopressor Anticoagulation Lovenox 1mg/kg SC every 12h Amiodarone drip per protocol GI ppx Pepcid Discussed all above with patient who verbalizes agreement and understanding of care plan. All questions were answered. Discussed with supervising/admitting MD. Plan discussed with: Patient, Other Code Visit Code Visit Total Time (mins): 45 Additional Comments Additional Comments Additional Comments Patient's chart is reviewed and discussed with the LOBBY PORTER. Patient is seen evaluated and admitted by LOBBY PORTER logistics manager. I agree with the her evaluation, documentation, assessment and care plan as outlined. Patient is seen and evaluated by me this afternoon and discussed with the nurse/patient regarding care plan NIYA BRANDT Feb 26, 2025 00:21 BRIA MONTGOMERY MD Feb 26, 2025 15:58
[2025-02-26] MEDS: FUROSEMIDE 20 MG/2 ML VIAL IV SCH (06:13)
[2025-02-26] MEDS: ASPirin-EC 81 mg tab PO SCH (09:25)
[2025-02-26] MEDS: FAMOTIDINE 20 MG TAB PO SCH ×2 (09:26→21:37)
[2025-02-26] MEDS ORDERED: FAMOTIDINE 20 MG TAB PO SCH ×2 (10:00)
--- NOTE | 2025-02-26 10:29 | ECG ---
[facility] Test Date: 2025-02-25 Test Time: 15:16:02 Pat Name: TRUNG KUNZ Department: [facility] ED Patient ID: [facility]-[id number] Room: 0290T A Gender: F Fund Controller: LUCIO : 1945 Requested By: ALPA DUNBAR Order Number: [id number] Reading MD: Charan Bahena Measurements Intervals [place] Rate: 105 P: 0 GA: 0 QRS: -45 QRSD: 94 T: 34 QT: 424 QTc: 561 Interpretive Statements Atrial fibrillation LAD, consider left anterior fascicular block Probable left ventricular hypertrophy Anterior Q waves, possibly due to LVH Prolonged QT interval Electronically Signed On 02-26-2025 13:56:05 PST by Charan Bahena Please click the below link to view image of tracing.
--- NOTE | 2025-02-26 10:29 | ECG ---
[facility] Test Date: 2025-02-25 Test Time: 13:38:57 Pat Name: TRUNG KUNZ Department: [facility] ED Patient ID: [id number] Room: 0290T A Gender: F Accordion Repairer: mariam : 1945 Requested By: ALPA DUNBAR Order Number: [id number] Reading MD: Charan Bahena Measurements Intervals [place] Rate: 141 P: 225 VT: 80 QRS: -56 QRSD: 90 T: 67 QT: 325 QTc: 498 Interpretive Statements Sinus or ectopic atrial tachycardia Left anterior fascicular block Probable left ventricular hypertrophy Borderline abnrm T, anterolateral leads Borderline prolonged QT interval Electronically Signed On 02-26-2025 13:55:42 PST by Charan Bahena Please click the below link to view image of tracing.
--- NOTE | 2025-02-26 10:30 | ECG ---
[facility] Test Date: 2025-02-25 Test Time: 12:15:13 Pat Name: TRUNG KUNZ Department: [facility] ED Patient ID: [id number] Room: 0290T A Gender: F Customer Care Team Coach: mariam : 1945 Requested By: ALPA DUNBAR Order Number: [id number] Reading MD: Charan Bahena Measurements Intervals [place] Rate: 140 P: 0 AK: 0 QRS: 111 QRSD: 92 T: 195 QT: 396 QTc: 605 Interpretive Statements Junctional tachycardia Left posterior fascicular block Repolarization abnormality, prob rate related Prolonged QT interval Electronically Signed On 02-26-2025 13:55:35 PST by Charan Bahena Please click the below link to view image of tracing.
--- NOTE | 2025-02-26 13:27 | DVHINCON2 ---
Date Seen: Feb 26, [address] Berkowitz Reason for Consultation afib with rvr History of Present Illness Bobbi Beck is a 79-year-old female patient who presents to ED with chief complaint of oppressive, nonradiating, retrosternal chest pain which is associated to palpitations which started two months ago, each episode normally lasts 2 hours, relieved whenever she takes her home medication (metoprolol and losartan), associated with nausea dry heaves in abdominal pain. Patient reports intensity of pain 10/10 associated with diaphoresis while being evaluated in urgent care, In urgent Care prompted her to be evaluated emergency department. Patient reports not taking aspirin atorvastatin for over a year since it produces GI upset. Per patient, she was in [place] visiting her daughter a proximally two months ago and could not be admitted or complete any cardiological evaluation due to insurance issues. Denies any other associated symptoms. Evaluating emergency department containing EKG which showed AFib RVR with no ST-elevation, indicating amiodarone drip. Cardiology consulted for AFib RVR. Past medical history: Hypertension, dyslipidemia, coronary artery disease with PCI in 2012 with one HERMELINDO to proximal PDA, completed coronary angiography in April 2024 since patient presented third-degree AV block with inferior STEMI, which reported nonobstructive coronary arteries. Patient did not require pacemaker, resolved by medical management (reducing metoprolol dose), GERD, urinary incontinence secondary to uterine prolapse status post hysterectomy Surgical history: Coronary angiography in two opportunities (2012 and 04/2024) PCI in 2012 to proximal PDA, hysterectomy Family history: Father side multiple CVAs. Social history: Lives in [place] alone (next of kin is daughter she lives in [facility]). Denies current tobacco, alcohol and other drug abuse. Allergies: Denies Home medication: Losartan 50 mg p.o. daily and metoprolol 50 mg p.o. daily Patient seen and examined at bedside. Currently has no new complaints. Patient is on amiodarone drip, currently converted to sinus rhythm on telemetry. Past Medical History Per HPI Past Surgical History Per HPI Family History: Cerebrovascular accident (CVA) G8 FATHER G8 BROTHER Family History Per HPI Social History Per HPI Allergies: Coded Allergies: NO KNOWN ALLERGIES (Unverified , 06/16/21) Allergies Per HPI Home Meds Active Scripts Ibuprofen Micronized (Ibuprofen) 600 Mg Tab, 600 MG PO TIDP PRN for 30 Days, #90 TAB Prov:LEIGHANN CRUZ MD 02/17/23 Clindamycin Hcl (Clindamycin Hcl) 300 Mg Cap, 600 MG PO TID for 10 Days, #60 CAP Prov:LEIGHANN CRUZ MD 02/17/23 Doxycycline Hyclate (DOXYCYCLINE HYCLATE) 100 Mg Tab, 100 MG PO BID for 10 Days, #20 TAB Prov:LEIGHANN CRUZ MD 02/17/23 Losartan Potassium (Losartan Potassium) 25 Mg Tab, 1 TAB PO DAILY, #30 TAB 0 Refills Prov:ISABELLA CHRISTINA MD 11/14/20 Metoprolol Tartrate (Metoprolol Tartrate) 25 Mg Tab, 0.5 TAB PO BID for 30 Days, #30 TAB 1 Refill Metoprolol 12.5 mg po bid Prov:ISABELLA CHRISTINA MD 11/14/20 Atorvastatin Calcium (ATORVASTATIN CALCIUM) 40 Mg Tab, 1 TAB PO DAILY, #30 TAB 0 Refills Prov:ISABELLA CHRISTINA MD 11/14/20 Aspirin (Aspir-81) 81 Mg Tab, 1 TAB PO DAILY, #30 TAB 0 Refills Prov:ISABELLA CHRISTINA MD 11/14/20 Reported Medications Metoprolol Succinate (Metoprolol Succinate Er) 50 Mg Tab, 1 TAB PO DAILY, #90 TAB 1 Refill 02/26/25 Gemfibrozil (Gemfibrozil) 600 Mg Tab, 1 TAB PO 05/05/24 Latanoprost (LATANOPROST) 0.005 % Hallie, 1 DROP EACHEYE 05/05/24 Losartan Potassium (Losartan Potassium) 50 Mg Tab, 1 TAB PO DAILY 05/05/24 Metoprolol Succinate (Metoprolol Succinate Er) 50 Mg Tab, 1 TAB PO DAILY 05/05/24 Atorvastatin Calcium (ATORVASTATIN CALCIUM) 20 Mg Tab, 1 TAB PO DAILY 05/05/24 Cetirizine Hcl (Zyrtec Allergy) 10 Mg Tab, 10 MG PO, TAB 07/24/21 B-Complex W/ Folic Acid (B Complex) Tab, 1 OR, TAB 07/24/21 Cholecalciferol (VITAMIN D3) 2,000 Unit Tab, 2000 UNIT OR, TAB 07/24/21 Carvedilol (Coreg) 12.5 Mg Tab, 12.5 MG PO, TAB 07/24/21 Ezetimibe (Zetia) 10 Mg Tab, 10 MG PO, TAB 07/24/21 [Diazepam] (Diazepam) No Conflict Check 05/14/12 [Ativan] No Conflict Check 05/14/12 [Zolpidem] No Conflict Check 05/14/12 Current Medications Current Medications Medications (Trade) Dose Ordered Sig/Chaya Route PRN Reason Start Time Stop Time Status Last Admin Nitroglycerin (Ntrostat Sublingual) 0.4 mg Q5MINP PRN SL FOR CHEST PAIN 02/25/25 15:30 Morphine Sulfate 2 mg Q30M PRN IV FOR CHEST PAIN 02/25/25 15:30 Metoprolol Tartrate (Lopressor Tablet) 25 mg BID PO 02/25/25 22:00 02/26/25 09:25 Metoprolol Tartrate (Lopressor) 2.5 mg Q6HPRN PRN IV HEART RATE GREATER THAN 140 02/25/25 15:45 02/25/25 18:23 DC 02/25/25 18:17 Enoxaparin Sodium (Lovenox) 50 mg Q12HR SC 02/25/25 22:00 02/26/25 09:26 Ondansetron HCl (Zofran) 4 mg Q4HPRN PRN IV NAUSEA / VOMITING 02/25/25 15:45 Famotidine (Pepcid Tablet) 40 mg DAILY PO 02/26/25 10:00 02/26/25 07:46 DC Atorvastatin Calcium (Lipitor) 20 mg HS PO 02/25/25 22:00 Aspirin (Ecotrin Enteric Coated Tablet) 81 mg DAILY PO 02/26/25 10:00 02/26/25 09:25 Furosemide (Lasix Injection) 20 mg BIDD IV 02/26/25 06:00 02/26/25 06:13 Metoprolol Tartrate (Lopressor) 2.5 mg Q4HPRN PRN IV HR>120 02/25/25 18:30 02/25/25 20:01 Amiodarone HCl 250 ml @ 16.66 mls/ hr Q15H1M IV 02/26/25 02:45 02/26/25 07:51 DC 02/26/25 07:45 Famotidine (Pepcid Tablet) 20 mg BID PO 02/26/25 10:00 UNV Famotidine (Pepcid Tablet) 20 mg DAILY PO 02/26/25 10:00 02/26/25 09:26 Amiodarone HCl 250 ml @ 16.66 mls/ hr Q15H1M IV 02/26/25 08:00 Review of Systems Per HPI Vital Signs Vital Signs Date Time Temp Pulse Resp B/P (MAP) Pulse Ox O2 Delivery O2 Flow Rate FiO2 02/26/25 12:47 98.1 89 19 116/81 (93) 98 98.1 02/26/25 08:00 Room Air* 0 21 Physical Exam Patient lying in bed, in no acute distress General: Lucid, afebrile, mucosae are moist Cardiovascular: Normal S1 and S2. Holosystolic murmur best heard in lower left parasternal border intensity 4/6. No gallops or rubs Respiratory: Normal ventilation mechanics. Clear lung sounds on auscultation Abdomen: Soft, nontender, no organomegaly, normal bowel sounds MSK/skin: Mobilizes 4 limbs. Skin is dry and warm Neurological: Oriented in 3 spheres. No motor no sensitive deficits. Pupils are isocoric and reactive Labs/Diagnostic Data Labs Test 02/25/25 23:06 02/25/25 13:03 Range/Units Troponin I High Sensitivity 105 *H </=34 ng/L White Blood Count 6.3 4.4-10.8 10^3/uL Red Blood Count 4.46 4.0-5.20 10^6/uL Hemoglobin 13.3 12.2-16.2 g/dL Hematocrit 39.3 36.0-46.0 % Mean Corpuscular Volume 88.1 80.0-100.0 fL Mean Corpuscular Hemoglobin 29.8 28.0-32.0 pg Mean Corpuscular Hemoglobin Concent 33.9 32.0-36.0 g/dL Red Cell Distribution Width 15.1 H 11.8-14.3 % Platelet Count 292 140-450 10^3/uL Mean Platelet Volume 7.4 6.9-10.8 fL Neutrophils (%) (Auto) 75.4 37.0-80.0 % Lymphocytes (%) (Auto) 17.6 10.0-50.0 % Monocytes (%) (Auto) 5.5 0.0-12.0 % Eosinophils (%) (Auto) 0.6 0.0-7.0 % Basophils (%) (Auto) 0.9 0.0-2.0 % Neutrophils # (Auto) 4.7 1.6-8.6 10 ^3/uL Lymphocytes # (Auto) 1.1 0.4-5.4 10 ^3/uL Monocytes # (Auto) 0.3 0-1.3 10 ^3/uL Eosinophils # (Auto) 0 0-0.8 10 ^3/uL Basophils # (Auto) 0.1 0-0.2 10 ^3/uL Nucleated Red Blood Cells 0.2 % Prothrombin Time 13.5 H 9.3-11.8 sec Prothrombin Time INR 1.31 H 0.9-1.15 Activated Partial Thromboplast Time 29.9 24.5-34.5 SEC Sodium Level 135 L 136-145 mmol/L Potassium Level 3.5 3.5-5.1 mmol/L Chloride Level 101 98-107 mmol/L Carbon Dioxide Level 20 20-31 mmol/L Anion Gap 14 5-15 Blood Urea Nitrogen 13 9-23 mg/dL Creatinine 1.10 H 0.550-1.02 mg/dL Glomerular Filtration Rate Calc 52 >90 mL/min BUN/Creatinine Ratio 11.8 10.0-20.0 Serum Glucose 119 H 74-106 mg/dL Lactic Acid Level 1.9 0.4-2.0 mmol/L Calcium Level 8.5 L 8.7-10.4 mg/dL Magnesium Level 2.0 1.6-2.6 mg/dL Total Bilirubin 1.1 H 0.2-1.0 mg/dL Aspartate Amino Transferase (AST) 56 H 13-40 U/L Alanine Aminotransferase (ALT) 25 7-40 U/L Alkaline Phosphatase 93 46-116 U/L B-Type Natriuretic Peptide 859.76 0-100 pg/mL Total Protein 6.9 5.7-8.2 g/dL Albumin 3.8 3.2-4.8 g/dL Lipase 48 12-53 U/L Thyroid Stimulating Hormone (TSH) 1.91 0.55-4.78 uIU/mL Free Thyroxine (T4) Calculated 1.65 0.89-1.76 ng/dL Assessment Paroxysmal Atrial fibrillation with rapid ventricular response (chads Vasc 5), currently normal sinus rhythm- secondary hypercoagulability state NSTEMI probable type 2 Rule out acute coronary syndrome Coronary artery disease with history of TN status post PCI with one HERMELINDO on 2012 Pulmonary hypertension Moderate tricuspid regurgitation History of high-degree AV block GERD History of urinary incontinence secondary to uterine prolapse status post hysterectomy Noncompliance Plan/Recommendation Evaluated EKG which showed AFib with rapid ventricular response and no ST- elevation. Troponin mildly elevated and trending up (45-91-97-73-85-105). Retrosternal oppressive chest pain with no radiation similar to previous TN. Patient currently on amiodarone drip, converted to normal sinus rhythm per telemetry, ordered EKG. We will switch to p.o. once EKG confirms normal sinus rhythm, we will transition to p.o. amiodarone. Continue low-dose metoprolol. Completed echocardiogram which shows LVEF 50%, moderate TR, mild AR, moderate pulmonary hypertension with RVSP 48 mmHg. Ordered stress test to rule out ischemia. Patient had a recent coronary angiography on 04/2024, the patient is noncompliant with aspirin atorvastatin. If stress test is positive, we will offer coronary angiography once again to patient. Continue trending troponin until reaching peak. Optimize loading conditions. Educated patient on importance of compliance with medication. Goals of care discussed with patient for over 18 minutes: Full code status Discussed plan with Dr. Andino, patient and nurses: Patient currently on telemetry status. Patient converted to sinus rhythm on telemetry, ordered EKG to confirm conversion. We will switch IV amiodarone to p.o. once EKG confirms sinus rhythm. Reviewed echocardiogram. Ordered stress test to be completed, if positive we will offer coronary angiography. Have educated the patient on importance of compliance with medication. Patient has poor prognosis Plan discussed with: Patient, Other (Nurses) NYHA Physical activity limitations: Class1(None)absent sob, Date of Service: Feb 26, 2025 Billing Provider: MARV ANDINO Sr., MD Cardiology Common Codes: 54255-XZLCLFE INP/OBS CARE (High) Cardiology Secondary Visit Cod: [id number] CARE PLAN 30 MINUTES DELFINA ANDREWS RESIDENT Feb 26, 2025 13:27
[2025-02-26 15:06] LABS: Triglycerides 53.0 mg/dL (< 150)
[2025-02-26 15:08] LABS: Cholesterol 122.0 mg/dL (< 200); HDL Cholesterol 38.0 mg/dL (40-59)
[2025-02-26] MEDS: MAALOX PLUS or MAALOX 30 ML PO PRN (15:47)
[2025-02-26] MEDS: HYALURONIDASE 150 UNIT/1 ML SUBCUT ONE (16:36)
[2025-02-26 20:20] LABS: Phencyclidine Screen, Urine Neg (NEGATIVE)
[2025-02-26 20:35] LABS: Urine Protein, UAD Negative (Negative)
[2025-02-26 20:36] LABS: Amphetamine Screen, Urine Neg (NEGATIVE); Barbiturate Scree,Urine Neg (NEGATIVE); Benzodiazephine Screen, Urine Neg (NEGATIVE); Cannabinoid Screen, Urine Neg (NEGATIVE); Cocaine Screen, Urine Neg (NEGATIVE); Opiate Scree,Urine Neg (NEGATIVE)
[2025-02-26] MEDS: AMIODARONE HCL 200 MG TAB PO SCH (21:36)
[2025-02-27] VITALS (8 sets, daily range): BP systolic 112–136; BP diastolic 85–101; PULSE 71–117; RESP 17–20; TEMP 97–98; O2SAT 93–98
--- NOTE | 2025-02-27 07:45 | ECG ---
[facility] Test Date: 2025-02-26 Test Time: 17:34:19 Pat Name: TRUNG KUNZ Department: Room: 0290T A Gender: F Electroneurodiagnostic Technician: GIANA : 1945 Requested By: DELFINA ANDREWS Order Number: [id number] Reading MD: Charan Bahena Measurements Intervals [place] Rate: 108 P: 240 MI: 166 QRS: -45 QRSD: 100 T: 62 QT: 380 QTc: 510 Interpretive Statements Ectopic atrial tachycardia, unifocal LVH with secondary repolarization abnormality Inferior infarct, old Anterior Q waves, possibly due to LVH Prolonged QT interval Electronically Signed On 03-04-2025 11:03:29 PST by Charan Bahena Please click the below link to view image of tracing.
--- NOTE | 2025-02-27 10:06 | DVHPN2 ---
Consult Progress Note Date Seen: Feb 27, 2025 Subjective Review of Systems: CVS:Normal, RESPIRATORY:Normal, NEURO:Normal Other Systems: Denies any further cardiac symptoms Objective vital signs Vital Sign Date Time Temp Pulse Resp B/P (MAP) Pulse Ox O2 Delivery O2 Flow Rate FiO2 02/27/25 09:00 97.1 76 18 132/100 (111) 98 97.1 02/26/25 20:00 Room Air* 0 21 Total Intake and Output 02/26/25 02/26/25 02/27/25 15:00 23:00 07:00 Intake Total 250 ml 770 ml 540 ml Balance 250 ml 770 ml 540 ml medications Current Medications Medications Dose Ordered Sig/Chaya Route Start Time Stop Time Status Last Admin Dose Admin Nitroglycerin 0.4 mg Q5MINP PRN SL 02/25/25 15:30 Morphine Sulfate 2 mg Q30M PRN IV 02/25/25 15:30 Metoprolol Tartrate 25 mg BID PO 02/25/25 22:00 02/26/25 21:38 25 MG Enoxaparin Sodium 50 mg Q12HR SC 02/25/25 22:00 02/27/25 09:30 50 MG Ondansetron HCl 4 mg Q4HPRN PRN IV 02/25/25 15:45 Atorvastatin Calcium 20 mg HS PO 02/25/25 22:00 02/26/25 21:36 20 MG Aspirin 81 mg DAILY PO 02/26/25 10:00 02/27/25 09:29 81 MG Furosemide 20 mg BIDD IV 02/26/25 06:00 02/27/25 06:03 20 MG Metoprolol Tartrate 2.5 mg Q4HPRN PRN IV 02/25/25 18:30 02/25/25 20:01 2.5 MG Famotidine 20 mg BID PO 02/26/25 10:00 UNV Famotidine 20 mg BID PO 02/26/25 22:00 02/27/25 09:29 20 MG Al Hydrox/Mg Hydrox/Simethicone 30 ml Q6HP PRN PO 02/26/25 15:30 02/26/25 15:47 30 ML Amiodarone HCl 400 mg Q12HR PO 02/26/25 22:00 02/27/25 09:29 400 MG Examination: GENERAL:Normal, LUNGS:Normal, CVS:Abnormal (Paroxysmal a-fib events on [employer]), NEURO:Normal laboratory and microbiology Laboratory Tests 02/25/25 13:03 Test 02/25/25 13:03 Range/Units Serum Glucose 119 H 74-106 mg/dL Problem List/Assessment/Plan Problem List/Assessment/Plan Paroxysmal atrial fibrillation with rapid ventricular response (chads Vasc 5), with recurrent paroxysmal events- secondary hypercoagulability state NSTEMI probable type 2 secondary to above Coronary artery disease with history of [place] status post PCI with one HERMELINDO on 2012 Pulmonary hypertension, moderate degree Moderate tricuspid regurgitation History of high-degree AV block GERD Medical noncompliance Plan/Recommendation (Dr. Bahena) Evaluated EKG which showed AFib with rapid ventricular response and no ST- elevation. Troponin mildly elevated and trending up ([id number]). Retrosternal oppressive chest pain with no radiation similar to previous [place]. Patient currently on amiodarone drip, converted to normal sinus rhythm per telemetry, ordered EKG. We will switch to p.o. once EKG confirms normal sinus rhythm, we will transition to p.o. amiodarone. Continue low-dose metoprolol. Completed echocardiogram which shows LVEF 50%, moderate TR, mild AR, moderate pulmonary hypertension with RVSP 48 mmHg. Recent coronary angiography completed on 04/2024, the patient is noncompliant with aspirin & atorvastatin. Ordered stress test to rule out ischemia, patient refused. Troponin levels peaked at 105 ng/L. Optimize loading conditions. Educated patient on importance of compliance with medication. Plan: Patient currently on telemetry status revealing paroxysmal episodes of atrial fibrillation in the low 100s bpm. Continue antiarrhythmic therapy, amiodarone to p.o. Continue rate control with metoprolol and titrate as tolerated. Transition to DOAC therapy with Eliquis BID ([id number] Score 5, HAS-BLED Score 2 points). Continue ASA and lipid-lowering agent given history of CAD with HERMELINDO. Refused stress test. Follow-up with Dr. Bahena in the outpatient setting within 1-2 weeks post-discharge. The patient can benefit from an outpatient event monitor. Have educated the patient on importance of compliance with medication. Kindly call if in need of further recommendations. Signing off at this time. Thank you for allowing us to participate in this patient's care. This medical document was created using an electronic medical record system with voice recognition software and computerized dictation system. Although this document has been carefully reviewed, there might still be some phonetic and typographical errors. Occasional wrong-word or ``sound-alike substitutions may have occurred due to the inherent limitations of voice recognition software. These areas are purely typographical due to imperfections of the software programs and do not reflect any compromise in the patient's medical care. Please read the chart carefully and recognize, using context, where these substitutions have occurred. Plan discussed with: Patient, Other Date of Service: Feb 27, 2025 Billing Provider: BAKARI STORY Cardiology Common Codes: [id number](High BAKARI STORY Feb 27, 2025 10:05
--- NOTE | 2025-02-27 13:49 | DVHPN2 ---
Progress Note - Dictate Date Seen: Feb 27, 2025 Medical Necessity Reason Pt with a Central, PICC or Fol: No Subjective She is comfortable sitting at the edge of the bed. Complains of heartburn. Having bowel movements. Heart rate in AFib high 90s to low 100s. No chest pain or palpitations. vital signs Vital Sign Date Time Temp Pulse Resp B/P (MAP) Pulse Ox O2 Delivery O2 Flow Rate FiO2 02/27/25 12:32 76 132/100 02/27/25 09:00 97.1 18 98 97.1 02/27/25 08:00 Room Air* 0 21 Total Intake and Output 02/26/25 02/26/25 02/27/25 15:00 23:00 07:00 Intake Total 250 ml 770 ml 540 ml Balance 250 ml 770 ml 540 ml medications Current Medications Medications Dose Ordered Sig/Chaya Route Start Time Stop Time Status Last Admin Dose Admin Nitroglycerin 0.4 mg Q5MINP PRN SL 02/25/25 15:30 Morphine Sulfate 2 mg Q30M PRN IV 02/25/25 15:30 Metoprolol Tartrate 25 mg BID PO 02/25/25 22:00 02/27/25 12:32 25 MG Ondansetron HCl 4 mg Q4HPRN PRN IV 02/25/25 15:45 Atorvastatin Calcium 20 mg HS PO 02/25/25 22:00 02/26/25 21:36 20 MG Aspirin 81 mg DAILY PO 02/26/25 10:00 02/27/25 09:29 81 MG Furosemide 20 mg BIDD IV 02/26/25 06:00 02/27/25 06:03 20 MG Famotidine 20 mg BID PO 02/26/25 10:00 UNV Famotidine 20 mg BID PO 02/26/25 22:00 02/27/25 09:29 20 MG Al Hydrox/Mg Hydrox/Simethicone 30 ml Q6HP PRN PO 02/26/25 15:30 02/27/25 12:34 30 ML Amiodarone HCl 200 mg Q12HR PO 02/27/25 22:00 Apixaban 5 mg BID PO 02/27/25 22:00 objective Alert awake oriented x3. HEENT neck supple no JVD. Heart mild tachycardia irregular rate and rhythm S1 and S2. Lungs fair air movement without rales wheezes. Abdomen soft nontender positive sounds. Extremities no edema. laboratory and microbiology Laboratory Tests 02/25/25 13:03 Test 02/25/25 13:03 Range/Units Serum Glucose 119 H 74-106 mg/dL Assessment/Plan I will start her on pantoprazole forward guarded symptoms. We will follow the CT of the abdomen and pelvis reports. This was done on 02/25 however results are still not yet available. We will call Radiology to give us report. Meantime for atrial fibrillation continue amiodarone metoprolol and anticoagulation. Further clinical management per clinical course. Given she is also on IV Lasix I will check her potassium levels and replace as needed. discussed with the patient and nurse regarding care plan. Problems(with codes): (1) GERD (gastroesophageal reflux disease) (2) Elevated troponin (3) Atrial fibrillation with RVR Plan discussed with: Patient, Other BRIA MONTGOMERY MD Feb 27, 2025 13:49
[2025-02-27 15:51] LABS: Chloride 99 mmol/L (98-107); Potassium 3.5 mmol/L (3.5-5.1); Sodium 136 mmol/L (136-145)
[2025-02-27 15:52] LABS: Anion Gap 11 (5-15); Carbon Dioxide 26 mmol/L (20-31)
[2025-02-27 15:53] LABS: Calcium 8.9 mg/dL (8.7-10.4)
[2025-02-27 15:57] LABS: BUN/Creatinine Ratio 14.7 (10.0-20.0); Blood Urea Nitrogen 20 mg/dL (9-23); Glucose 103 mg/dL (74-106)
[2025-02-27] MEDS: MAALOX PLUS or MAALOX 30 ML PO ONE (16:23)
[2025-02-27] MEDS: PANTOPRAZOLE 40 MG TAB PO SCH (16:24)
[2025-02-27] MEDS: ONDANSETRON HCL 4 MG/2 ML VIAL IV PRN (16:25)
[2025-02-27] MEDS: MORPHINE SULFATE INJ 2 MG/ml SYRG IV PRN (16:26)
--- NOTE | 2025-02-27 17:08 | DVH ---
Indication: abd pain Comparison: CT ABD PELVIS W on DOS: 02/25/25, XR ABDOMEN 2 VIEW on DOS: 02/25/25 Technique: Helical axial scans were performed through the abdomen and pelvis without intravenous contrast. Subsequently, coronal and sagittal reformations were obtained. Dose lowering techniques have been used including automated exposure control and adjustment of mA and/or kv according to patient size. FINDINGS: Limited evaluation of the vasculature and solid organs due to lack of intravenous contrast. LUNGS BASES: Small bilateral pleural effusion. Cardiomegaly. LIVER: scattered too small to characterize hypoattenuating foci. SPLEEN: Normal GALLBLADDER: Normal PANCREAS: Normal ADRENAL GLANDS: Normal KIDNEYS: No hydronephrosis or obstructing renal stone. Excreted contrast in the bilateral renal collecting systems. GI: No bowel dilation or wall thickening. Normal appendix. LYMPH NODES: Normal VASCULAR STRUCTURES: Normal BLADDER: Extensive streakartifact from excreted contrastlimiting evaluation of the adjacent structures. PELVIC ORGAN: Limited in evaluation due to streak artifact. Suspected hysterectomy. FREE AIR OR FREE FLUID: Trace intermediate density free fluid in the pelvis. OSSEOUS STRUCTURES: Multilevel degenerative changes of the spine. SOFT TISSUES: Tiny fat containing umbilical hernia. DLP is 374.01 mGy-cm. CTDI vol is 7.21 mGy. IMPRESSION: Limited evaluation due to streak artifact from excreted contrast in the bladder. 1. Trace intermediate density fluid in the pelvis, possibly proteinaceous or hemorrhagic. 2. Small bilateral pleural effusion. 3. Otherwise no obvious acute abnormality within stated limitations. EY AMES
[2025-02-27] MEDS: AMIODARONE HCL 200 MG TAB PO SCH (21:27)
[2025-02-27] MEDS: APIXABAN 5 MG TAB PO SCH (21:37)
[2025-02-28] VITALS (8 sets, daily range): BP systolic 105–143; BP diastolic 71–89; PULSE 72–98; RESP 16–18; TEMP 97.5–98.1; O2SAT 93–97
[2025-02-28 07:11] LABS: Hematocrit 37.9 % (36.0-46.0); Hemoglobin 12.8 g/dL (12.2-16.2); Mean Corpuscular Hemoglobin 29.4 pg (28.0-32.0); Mean Corpuscular Volume 87.4 fL (80.0-100.0); Nucleated Red Blood Cells % 0.1 %
[2025-02-28 07:32] LABS: Alanine Aminotransferase 24 U/L (7-40); Albumin 3.5 g/dL (3.2-4.8); Alkaline Phosphatase 80 U/L (46-116); Anion Gap 11 (5-15); BUN/Creatinine Ratio 12.9 (10.0-20.0); Blood Urea Nitrogen 13 mg/dL (9-23); Carbon Dioxide 26 mmol/L (20-31); Chloride 100 mmol/L (98-107); Glucose 90 mg/dL (74-106); Lipase 43 U/L (12-53); Sodium 137 mmol/L (136-145); Total Protein 6.5 g/dL (5.7-8.2)
[2025-02-28 07:33] LABS: Bilirubin, Total 0.9 mg/dL (0.2-1.0)
[2025-02-28 07:34] LABS: Calcium 8.6 mg/dL (8.7-10.4); Potassium 3.4 mmol/L (3.5-5.1)
--- NOTE | 2025-02-28 10:59 | DVHPN2 ---
Progress Note - Dictate Date Seen: Feb 28, 2025 Medical Necessity Reason Pt with a Central, PICC or Fol: No Subjective She is going down to Cardiology lab to have Lexiscan stress study done today by Cardiology. Her abdominal discomfort and GERD symptoms resolved with the Protonix. CT of the abdomen and pelvis results reviewed no acute pathology identified. She is feeling better today. Heart rate is controlled at present. vital signs Vital Sign Date Time Temp Pulse Resp B/P (MAP) Pulse Ox O2 Delivery O2 Flow Rate FiO2 02/28/25 08:30 97.7 79 16 143/89 (107) 97 97.7 02/27/25 20:00 Room Air* 0 21 Total Intake and Output 02/27/25 02/27/25 02/28/25 15:00 23:00 07:00 Intake Total 675 ml 200 ml Balance 675 ml 200 ml medications Current Medications Medications Dose Ordered Sig/Chaya Route Start Time Stop Time Status Last Admin Dose Admin Nitroglycerin 0.4 mg Q5MINP PRN SL 02/25/25 15:30 Morphine Sulfate 2 mg Q30M PRN IV 02/25/25 15:30 Metoprolol Tartrate 25 mg BID PO 02/25/25 22:00 02/27/25 12:32 25 MG Ondansetron HCl 4 mg Q4HPRN PRN IV 02/25/25 15:45 02/27/25 16:25 4 MG Atorvastatin Calcium 20 mg HS PO 02/25/25 22:00 02/26/25 21:36 20 MG Aspirin 81 mg DAILY PO 02/26/25 10:00 02/27/25 09:29 81 MG Furosemide 20 mg BIDD IV 02/26/25 06:00 02/28/25 05:34 20 MG Famotidine 20 mg BID PO 02/26/25 10:00 UNV Al Hydrox/Mg Hydrox/Simethicone 30 ml Q6HP PRN PO 02/26/25 15:30 02/27/25 12:34 30 ML Amiodarone HCl 200 mg Q12HR PO 02/27/25 22:00 02/27/25 21:27 200 MG Apixaban 5 mg BID PO 02/27/25 22:00 Pantoprazole Sodium 40 mg BID@0600,1700 PO 02/27/25 17:00 02/28/25 05:34 40 MG Morphine Sulfate 2 mg Q4HPRN PRN IV 02/27/25 15:00 02/27/25 16:26 2 MG objective Alert awake oriented x3. HEENT neck supple no JVD. Heart mild tachycardia irregular rate and rhythm S1 and S2. Lungs fair air movement without rales wheezes. Abdomen soft nontender positive sounds. Extremities no edema. laboratory and microbiology Laboratory Tests 02/28/25 05:48 Test 02/28/25 05:48 Range/Units Serum Glucose 90 74-106 mg/dL Assessment/Plan Continue Protonix upon discharge given symptoms resolved. If Lexiscan stress test is completed done and no reversible ischemia then she can be discharged home with oral cardiac medications, anticoagulation and proton pump inhibitor. This is discussed with the patient. She has verbalized understanding of this and agree with the care plan. Problems(with codes): (1) Chest pain (2) Elevated troponin (3) Atrial fibrillation with RVR (4) GERD (gastroesophageal reflux disease) Plan discussed with: Patient BRIA MONTGOMERY MD Feb 28, 2025 10:59
[2025-02-28] MEDS: REGADENOSON 0.4 MG/5 ML SYRG IV ONE ×2 (12:01→12:02)
[2025-02-28] MEDS: POTASSIUM CHL 20 Meq TABLET PO ONE (12:43)
[2025-03-01] VITALS (7 sets, daily range): BP systolic 108–140; BP diastolic 71–96; PULSE 85–108; RESP 16–18; TEMP 97.5–99.6; O2SAT 93–97
--- NOTE | 2025-03-01 16:06 | DVHSR ---
APPROVED REPORT Exam: Nuclear Stress Test BMI: 0 Stress Test Details Stress Test: Pharmacologic stress testing performed using 0.4 mg of regadenoson per 5 mL given IV over 10 seconds. HR Resting HR: 75 bpm Max Heart Rate (APMHR): 143.855371 bpm Max HR Achieved: 104 bpm Target HR (85% APMHR): 121.780024 bpm % of APMHR: 72.73 Recovery HR: 80 bpm BP Resting BP: 140/93 mmHg Recovery BP: 124/79 mmHg ECG Resting ECG: Sinus Rhythm Nurse Comments Received patient from Nuclear Medicine. Patient is A&O x4. For VS please refer back to stress test assessment documentation. Patient is connected to monitor tech. See Cardio- Neuro procedural notes for additional details. PIV flushes well. Reviewed POC and patient verbalizes understanding and consents to test. Stress ECG Conclusion NON ISCHEMIC CLINICAL RESPONSE NON ISCHEMIC ECG RESPONSE NON ISCHEMIC CARDIOLITE IMAGES EF >55% NM EXAM: Myocardial Perfusion REST/STRESS Imaging Protocol: Rest Tc-99m/Stress Tc-99m 1 day Resting Data Rest SPECT myocardial perfusion imaging was performed in supine position 60 minutes following the intravenous injection of 10.7 mCi of Tc-99m Sestamibi. Time of rest injection: 09:55 Date: 02/28/2025 Time of rest imagin:55 Date: 02/28/2025 Administration Route: IV Administration Site: Right Arm Pharmacologic Stress Pharmacologic stress test was performed by injecting Regadenoson 0.4 mg IV push followed by the intravenous injection of 31.1 mCi of Tc-99m Sestamibi. Time of stress injection: 12:10 Date: 02/28/2025 Time of stress imagin:10 Date: 02/28/2025 Administration Route: IV Administration Site: Right Arm Gated Stress SPECT was performed 60 minutes after stress injection. The images were gated to evaluate regional wall motion and calculate left ventricular ejection fraction. Stress only was performed in the Supine position. Nuclear Conclusion NON ISCHEMIC CLINICAL RESPONSE NON ISCHEMIC ECG RESPONSE NON ISCHEMIC CARDIOLITE IMAGES EF >55%
--- NOTE | 2025-03-01 16:34 | DVHPN2 ---
Consult Progress Note Date Seen: Mar 01, 2025 Subjective Review of Systems: CVS:Normal, RESPIRATORY:Normal, NEURO:Normal Objective vital signs Vital Sign Date Time Temp Pulse Resp B/P (MAP) Pulse Ox O2 Delivery O2 Flow Rate FiO2 03/01/25 12:55 97.5 94 17 108/78 (88) 94 97.5 03/01/25 08:00 Room Air* 0 21 Total Intake and Output 02/28/25 02/28/25 03/01/25 15:00 23:00 07:00 Intake Total 236 ml 600 ml Balance 236 ml 600 ml medications Current Medications Medications Dose Ordered Sig/Chaya Route Start Time Stop Time Status Last Admin Dose Admin Nitroglycerin 0.4 mg Q5MINP PRN SL 02/25/25 15:30 Morphine Sulfate 2 mg Q30M PRN IV 02/25/25 15:30 Metoprolol Tartrate 25 mg BID PO 02/25/25 22:00 03/01/25 09:56 25 MG Ondansetron HCl 4 mg Q4HPRN PRN IV 02/25/25 15:45 02/28/25 21:58 4 MG Atorvastatin Calcium 20 mg HS PO 02/25/25 22:00 02/28/25 21:58 20 MG Aspirin 81 mg DAILY PO 02/26/25 10:00 02/27/25 09:29 81 MG Furosemide 20 mg BIDD IV 02/26/25 06:00 03/01/25 05:06 20 MG Famotidine 20 mg BID PO 02/26/25 10:00 UNV Al Hydrox/Mg Hydrox/Simethicone 30 ml Q6HP PRN PO 02/26/25 15:30 02/27/25 12:34 30 ML Amiodarone HCl 200 mg Q12HR PO 02/27/25 22:00 03/01/25 09:55 200 MG Apixaban 5 mg BID PO 02/27/25 22:00 03/01/25 09:55 5 MG Pantoprazole Sodium 40 mg BID@0600,1700 PO 02/27/25 17:00 03/01/25 05:06 40 MG Morphine Sulfate 2 mg Q4HPRN PRN IV 02/27/25 15:00 02/27/25 16:26 2 MG Examination: LUNGS:Normal, CVS:Normal, NEURO:Normal laboratory and microbiology Laboratory Tests 02/28/25 05:48 Test 02/28/25 05:48 Range/Units Serum Glucose 90 74-106 mg/dL Problem List/Assessment/Plan Problem List/Assessment/Plan Paroxysmal atrial fibrillation with rapid ventricular response (chads Vasc 5), with recurrent paroxysmal events- secondary hypercoagulability state NSTEMI probable type 2 secondary to above Coronary artery disease with history of [place] status post PCI with one HERMELINDO on 2012 Pulmonary hypertension, moderate degree Moderate tricuspid regurgitation History of high-degree AV block GERD Medical noncompliance Plan/Recommendation (Dr. Bahena) Evaluated EKG which showed AFib with rapid ventricular response and no ST- elevation. Troponin mildly elevated and trending up ([id number]). Retrosternal oppressive chest pain with no radiation similar to previous [place]. Patient currently on amiodarone drip, converted to normal sinus rhythm per telemetry, ordered EKG. We will switch to p.o. once EKG confirms normal sinus rhythm, we will transition to p.o. amiodarone. Continue low-dose metoprolol. Completed echocardiogram which shows LVEF 50%, moderate TR, mild AR, moderate pulmonary hypertension with RVSP 48 mmHg. Recent coronary angiography completed on 04/2024, the patient is noncompliant with aspirin & atorvastatin. Ordered stress test to rule out ischemia, non-ischemic. Troponin levels peaked at 105 ng/L. Optimize loading conditions. Educated patient on importance of compliance with medication. Plan: Patient currently on telemetry status revealing paroxysmal episodes of atrial fibrillation in the low 100s bpm. Continue antiarrhythmic therapy, amiodarone to p.o. Continue rate control with metoprolol and titrate as tolerated. Transition to DOAC therapy with Eliquis BID ([id number] Score 5, HAS-BLED Score 2 points). Continue ASA and lipid-lowering agent given history of CAD with HERMELINDO. Follow-up with Dr. Bahena in the outpatient setting within 1-2 weeks post-discharge. The patient can benefit from an outpatient event monitor. Have educated the patient on importance of compliance with medication. Kindly call if in need of further recommendations. Signing off at this time. Thank you for allowing us to participate in this patient's care. This medical document was created using an electronic medical record system with voice recognition software and computerized dictation system. Although this document has been carefully reviewed, there might still be some phonetic and typographical errors. Occasional wrong-word or ``sound-alike substitutions may have occurred due to the inherent limitations of voice recognition software. These areas are purely typographical due to imperfections of the software programs and do not reflect any compromise in the patient's medical care. Please read the chart carefully and recognize, using context, where these substitutions have occurred. Plan discussed with: Patient, Other Date of Service: Mar 01, 2025 Billing Provider: BAKARI STORY Cardiology Common Codes: [id number](High BAKARI STORY Mar 01, 2025 16:34
[2025-03-01] MEDS ORDERED: MET25T PO (16:36)
[2025-03-01] MEDS ORDERED: APIX5TAB PO (16:36)
[2025-03-01] MEDS ORDERED: AMIO200T13 PO (16:36)
--- NOTE | 2025-03-01 16:38 | DVHDS2 ---
Discharge Summary Date of Admission Feb 25, 2025 at 15:30 Date of Discharge: Mar 01, 2025 Labs/Diagnostic Data: Laboratory Results Test 02/28/25 05:48 02/26/25 18:00 02/26/25 14:34 02/25/25 13:03 White Blood Count 5.5 10^3/uL (4.4-10.8) Red Blood Count 4.34 10^6/uL (4.0-5.20) Hemoglobin 12.8 g/dL (12.2-16.2) Hematocrit 37.9 % (36.0-46.0) Mean Corpuscular Volume 87.4 fL (80.0-100.0) Mean Corpuscular Hemoglobin 29.4 pg (28.0-32.0) Mean Corpuscular Hemoglobin Concent 33.7 g/dL (32.0-36.0) Red Cell Distribution Width 15.4 % (11.8-14.3) Platelet Count 276 10^3/uL (140-450) Mean Platelet Volume 7.8 fL (6.9-10.8) Neutrophils (%) (Auto) 60.4 % (37.0-80.0) Lymphocytes (%) (Auto) 28.4 % (10.0-50.0) Monocytes (%) (Auto) 9.6 % (0.0-12.0) Eosinophils (%) (Auto) 0.6 % (0.0-7.0) Basophils (%) (Auto) 1.0 % (0.0-2.0) Neutrophils # (Auto) 3.3 10 ^3/uL (1.6-8.6) Lymphocytes # (Auto) 1.6 10 ^3/uL (0.4-5.4) Monocytes # (Auto) 0.5 10 ^3/uL (0-1.3) Eosinophils # (Auto) 0 10 ^3/uL (0-0.8) Basophils # (Auto) 0.1 10 ^3/uL (0-0.2) Nucleated Red Blood Cells 0.1 % Sodium Level 137 mmol/L (136-145) Potassium Level 3.4 mmol/L (3.5-5.1) Chloride Level 100 mmol/L (98-107) Carbon Dioxide Level 26 mmol/L (20-31) Anion Gap 11 (5-15) Blood Urea Nitrogen 13 mg/dL (9-23) Creatinine 1.01 mg/dL (0.550-1.02) Glomerular Filtration Rate Calc 57 mL/min (>90) BUN/Creatinine Ratio 12.9 (10.0-20.0) Serum Glucose 90 mg/dL (74-106) Calcium Level 8.6 mg/dL (8.7-10.4) Total Bilirubin 0.9 mg/dL (0.2-1.0) Aspartate Amino Transferase (AST) 56 U/L (13-40) Alanine Aminotransferase (ALT) 24 U/L (7-40) Alkaline Phosphatase 80 U/L (46-116) Total Protein 6.5 g/dL (5.7-8.2) Albumin 3.5 g/dL (3.2-4.8) Lipase 43 U/L (12-53) Urine Color Yellow (Yellow) Urine Clarity Clear (Clear) Urine pH 6.0 (5.0-9.0) Urine Specific Jeff 1.021 (1.001-1.035) Urine Protein Negative (Negative) Urine Ketones Negative (Negative) Urine Blood Negative /uL (Negative) Urine Nitrite Negative (Negative) Urine Bilirubin Negative (Negative) Urine Urobilinogen Normal mg/dL (Negative) Urine Leukocyte Esterase Negative /uL (Negative) Urine RBC <1 /hpf (0 - 4) Urine Microscopic WBC 3 /HPF (0-5) Urine Squamous Epithelial Cells Few /hpf (<5) Urine Bacteria None seen /hpf (None Seen) Urine Hyaline Casts Few /lpf (0 - 2) Urine Glucose Normal mg/dL (Normal) Urine Opiates Screen Neg (NEGATIVE) Urine Fentanyl Screen Neg (NEGATIVE) Urine Barbiturates Screen Neg (NEGATIVE) Urine Phencyclidine Screen Neg (NEGATIVE) Urine Amphetamines Screen Neg (NEGATIVE) Urine Benzodiazepines Screen Neg (NEGATIVE) Urine Cocaine Screen Neg (NEGATIVE) Urine Cannabinoids Screen Neg (NEGATIVE) Hemoglobin A1c 6.1 % A1C (<5.7) Phosphorus Level 3.8 mg/dL (2.4-5.1) Troponin I High Sensitivity 87 ng/L (</=34) Triglycerides Level 53 mg/dL (< 150) Cholesterol Level 122 mg/dL (< 200) LDL Cholesterol 77 mg/dL (< 100) HDL Cholesterol 38 mg/dL (40-59) Vitamin B12 Level 2878 pg/mL (211-911) Vitamin D 25-Hydroxy 70.9 ng/mL (30.0-100) Prothrombin Time 13.5 sec (9.3-11.8) Prothrombin Time INR 1.31 (0.9-1.15) Activated Partial Thromboplast Time 29.9 SEC (24.5-34.5) Lactic Acid Level 1.9 mmol/L (0.4-2.0) Magnesium Level 2.0 mg/dL (1.6-2.6) B-Type Natriuretic Peptide 859.76 pg/mL (0-100) Thyroid Stimulating Hormone (TSH) 1.91 uIU/mL (0.55-4.78) Free Thyroxine (T4) Calculated 1.65 ng/dL (0.89-1.76) Other Laboratory Tests 02/28/25 05:48 Brief Hx & Hospital Course: 79-year-old female with a known history of hypertension, GERD, pulmonary hypertension, known CAD status post PCI with a one stent presented to the hospital with chest pain palpitation as GERD like symptoms. Eventually patient was admitted. Patient was seen by Cardiology. Patient was started on amiodarone as well as Eliquis. Patient was cleared by Cardiology to be discharged. Patient's elevated troponin was thought secondary to NSTEMI type 2. Condition at Discharge: Stable Final Diagnosis/Problems List 1. Paroxysmal AFib currently on amiodarone as well as Eliquis, currently normal sinus rhythm 2. NSTEMI type 2 secondary to 1. 3. CAD status post PCI 4. Hypertension 5. GERD Pulmonary hypertension, moderate degree Moderate tricuspid regurgitation History of high-degree AV block GERD Medical noncomplianc Discharge Disposition: Home SNF Discharge Will this Physician continue t: No Discharge Instruct/Medications Diet: Cardiac 2g Na,low cholest Activity: No Restrictions, As Tolerated Follow Up/Referral: Please follow up with the PCP in 1 week Follow up with Cardiology for outpatient event monitoring with Dr. Bahena in 1-2 weeks Medications: Resume medication, reconciled medication. Scheduled Amiodarone HCl (Amiodarone HCl), 200 MG PO Q12HR Apixaban Base (Eliquis), 5 MG PO BID Atorvastatin Calcium (Atorvastatin Calcium), 1 TAB PO DAILY, (Reported) Losartan Potassium (Losartan Potassium), 1 TAB PO DAILY Metoprolol Tartrate (Lopressor), 25 MG PO BID Miscellaneous Medications B-Complex W/ Folic Acid (B Complex), 1 OR, (Reported) Cetirizine Hcl (Zyrtec Allergy), 10 MG PO, (Reported) Cholecalciferol (Vitamin D3), 2,000 UNIT OR, (Reported) Ezetimibe (Zetia), 10 MG PO, (Reported) Gemfibrozil (Gemfibrozil), 1 TAB PO, (Reported) Latanoprost (Latanoprost), 1 DROP EACHEYE, (Reported) [Ativan], (Reported) [Diazepam], (Reported) [Zolpidem], (Reported) Discontinued Medications Aspirin (Aspir-81), 1 TAB PO DAILY Atorvastatin Calcium (Atorvastatin Calcium), 1 TAB PO DAILY Carvedilol (Coreg), 12.5 MG PO, (Reported) Clindamycin Hcl (Clindamycin Hcl), 600 MG PO TID Doxycycline Hyclate (Doxycycline Hyclate), 100 MG PO BID Ibuprofen Micronized (Ibuprofen), 600 MG PO TIDP PRN Losartan Potassium (Losartan Potassium), 1 TAB PO DAILY, (Reported) Metoprolol Succinate (Metoprolol Succinate Er), 1 TAB PO DAILY, (Reported) Metoprolol Succinate (Metoprolol Succinate Er), 1 TAB PO DAILY, (Reported) Metoprolol Tartrate (Metoprolol Tartrate), 0.5 TAB PO BID Discharge Statement: "Patient was advised to return to the ER or call 911 if any headaches, dizziness, shortness of breath, chest pain, abdominal pain, bleeding, fevers, or worsening of medical condition. Patient was counseled about treatment plan, medications, possible side effects, patientverbalized understanding. All questions were answered to the best of my ability. This discharge took greater then 30 minutes in planning, reviewing documentation, counseling the patient, and discussing with other team members." ASSESSMENT ASSESSMENT Assessment Paroxysmal atrial fibrillation with rapid ventricular response (chads Vasc 5), with recurrent paroxysmal events- secondary hypercoagulability state NSTEMI probable type 2 secondary to above Coronary artery disease with history of HI status post PCI with one HERMELINDO on 2012 Pulmonary hypertension, moderate degree Moderate tricuspid regurgitation History of high-degree AV block GERD Medical noncomplianc Date of Service: Mar 01, 2025 Billing Provider: STEFANY PUCKETT MD Common Visit Codes: NOT BILLABLE STEFANY PUCKETT MD Mar 01, 2025 16:38
== END 2025-03-01 19:07 | disposition home or self-care (01) | DRG 281 ==
LOC: EDUNIT# 12:00 → EDBD 12:00 → ER 12:00 → OVERFLOW 15:30 → TELE-WESTW 22:35
PROVIDERS: ADMIT Internal Medicine; ATTEND Internal Medicine
DX: I48.0 Paroxysmal atrial fibrillation (principal); D68.59 Other primary thrombophilia; I21.A1 Myocardial infarction type 2; I27.20 Pulmonary hypertension, unspecified; I11.0 Hypertensive heart disease with heart failure; I07.1 Rheumatic tricuspid insufficiency; I25.10 Atherosclerotic heart disease of native coronary artery without angina pectoris; K21.9 Gastro-esophageal reflux disease without esophagitis; E78.5 Hyperlipidemia, unspecified; Z95.5 Presence of coronary angioplasty implant and graft; Z90.710 Acquired absence of both cervix and uterus; Z79.82 Long term (current) use of aspirin; Z79.899 Other long term (current) drug therapy; Z82.3 Family history of stroke; I25.2 Old myocardial infarction; Z91.148 Patient's other noncompliance with medication regimen for other reason
CPT/HCPCS: 36415; 71045; 74176; 78452; 80048; 80053; 80061; 80307; 81001; 82306; 82607; 83036; 83605; 83690; 83735; 83880; 84100; 84439; 84443; 84484; 85025; 85610; 85730; 87086; 93005; 93017; 93306; 96374; 99291; G0378; J2405; J3470